=== PATIENT | female | born 1985 | race Caucasian/White ===

== ENCOUNTER 2017-06-06 17:30 | Outpatient (RCR) | payer OTHER, SELFPAY | END 2017-06-06 17:31 | disposition home or self-care (01) | LOC: PT 17:30 | PROVIDERS: Family Provider Pediatrics; Visit Provider Pediatrics | DX: M25.552 Pain in left hip (principal) | CPT/HCPCS: 97010; 97014; 97110; G0283 ==

== ENCOUNTER → 2017-12-21 08:20 | Outpatient (CLI) | payer OTHER, SELFPAY ==
--- NOTE | 2017-12-21 08:25 | US_ITS ---
US breast LT complete INDICATION: Fibrocystic breast disease ORDERING PHYSICIAN: Michelle Jackson PATIENT AGE: 32 years COMPARISON: None TECHNIQUE: Standard FINDINGS: No cystic or solid lesions evident. IMPRESSION: Negative left breast ultrasound BI-RADS Category: 1 Negative Follow-up suggested as clinically warranted. (A letter has been sent to the patient regarding results of the study.)
--- NOTE | 2017-12-21 08:25 | US_ITS ---
US breast RT complete INDICATION: Fibrocystic breast disease ORDERING PHYSICIAN: Michelle Jackson PATIENT AGE: 32 years COMPARISON: None TECHNIQUE: Right breast ultrasound with axilla FINDINGS: 5 mm hypoechoic nodule present at 3:00. The nodule well-circumscribed however, there is poor through transmission of sound. There is shadowing posterior to the nodule. The nodule however is very superficial and a lack of transmission of sound could be due to technique. Ultrasound-guided fine-needle aspiration suggested No other suspicious nodules demonstrated Mildly prominent lymph node is present in the axilla for x 1.6 cm. IMPRESSION: 5 mm hypoechoic nodule 3:00 right breast with poor through transmission of sound. There is shadowing posterior to the nodule. Recommend fine needle aspiration to confirm cystic nature BI-RADS Category: 4 Suspicious Abnormality-Biopsy Considered RECOMMENDED FOLLOW-UP: BIO - BIOPSY RECOMMENDED (A letter has been sent to the patient regarding results of the study.)
== END ==
PROVIDERS: Visit Provider Nurse Practitioner Family
DX: N60.02 Solitary cyst of left breast (principal); N60.01 Solitary cyst of right breast
CPT/HCPCS: 76641

== ENCOUNTER 2019-11-30 17:27 | Emergency (ER) | payer OTHER, SELFPAY ==
[2019-11-30 17:43] VITALS: BP 128/83; PULSE 101; RESP 18; TEMP 36.7; O2SAT 99; BMI 36.6
[2019-11-30 17:51] LABS: UTC Strep Screen (Rapid) Negative (Negative)
--- NOTE | 2019-11-30 17:52 | HMH.EDUTC ---
[facility] [place] Impression: Bronchitis Sinusitis Qualifiers: Sinusitis location: unspecified location Chronicity: unspecified Qualified Code(s): J32.9 - Chronic sinusitis, unspecified Disposition: Home, Self-Care Condition on Discharge: Good Instructions: Sinusitis, Sinus Headache, DI for Sinusitis, DI for Acute Bronchitis, Azithromycin Additional Instructions: ? Start antibiotic today. Be sure to complete entire prescription even if feeling better ? Monitor temp. Tylenol every 4 hours as needed and / or ibuprofen every 6 hours as needed ( As long as your primary care physician has told you that it ok to take both. For fever/aches/pains ER if no less than 101 despite Tylenol or Motrin ? Humidifier/vaporizer or hot steamy shower ? Inhaler every 4-6 hours as needed like we discussed. If unsure how to use it, ask pharmacist to demonstrate how. Should help open airways and improve cough, wheezing, and shortness of breath *Tessalon Perles will not cause drowsiness but use at bedtime to help stop cough so that you may get some rest. *Start steroid today. Helps with inflammation therefore, cough and wheezing. Follow directions on the package. Reviewed side effects. Patient reports taking them before. Follow up IMMEDIATELY for new or worsening of symptoms OR no noticeable improvement over the next 48-72 hours. 911 immediately for any life threatening symptoms such as chest pain or difficulty breathing Prescriptions: Albuterol Sulfate [Proventil-HFA 90mcg/puff Inh] 1 - 2 puffs IH Q4HP PRN #1 inh PRN Reason: Shortness Of Breath Transmission Status: Pending to [facility] # predniSONE [Deltasone 10mg tablet] 10 mg PO BID 5 Days #10 tab Transmission Status: Pending to [facility] # Fluticasone Propionate [Flonase 50mcg nasal spray 16gm] 1 - 2 spr NS DAILY #1 bottle Transmission Status: Pending to [facility] # Azithromycin [Z-Carlos 250mg Tab] 250 mg PO DIRECTED #6 tab Transmission Status: Pending to [facility] # Referrals: Rich Mohr [Primary Care Provider] - As needed Forms: Work/School Release Medical Decision Making - Evgeny Inquiry Pt receiving controlled substance: No Evgeny was queried for this patient: No Vital Signs: 11/30/19 17:43 Temperature 98.1 F Temperature Source Oral Pulse Rate [Radial] 101 H Respiratory Rate 18 Blood Pressure [Right Arm] 128/83 Blood Pressure Mean [Right Arm] 98 Blood Pressure Source [Right Arm] Automatic Cuff Blood Pressure Position [Right Arm] Sitting 02 Sat by Pulse Oximetry 99 Oxygen Delivery Method Room Air - Lab Data Lab results reviewed: Yes: I reviewed the patient's lab results. Lab Results 11/30/19 17:43: Strep Scn Rapid Clinic Negative Orders (Tests/Meds): ORDERS Category Date Time Status Strep Screen Confirmation Stat Micro 10 17:43 [place] [facility] [place] - General Stated complaint: sore throat, cough,weezing Time Seen by Provider: 11/30/19 17:52 Mode of Arrival: Ambulatory Source of Information: Patient Limitations: No Limitations Description of Symptoms (Recalled from Triage Doc. by RN): sore throat, cough, chills, congestion HEENT Symptoms (Recalled from RN notes): Yes Resp Symptoms (Recalled from RN notes): No Skin Symptoms (Recalled from RN notes): No MS Symptoms (Recalled from RN notes): No Functional Status (Recalled from RN notes): wnl - History of Present Illness Provider Complaint: Patient states that she has a history of bronchitis and sinusitis States that she gets tested weekly for COVID at work States that today she was coughing throat sore and irritated and sinus pain and pressure so wanted to come in and get checked and treated before it got too bad - Related Data Previous Rx's Medication Instructions Recorded sertraline 100 mg tablet 100 mg PO DAILY #30 tab 02/04/19 bupropion HCl 150 mg 24 hr tablet, 150 mg PO DAILY #30 tab 03/06/19 extended
[2019-11-30 18:22] VITALS: BP 128/83; PULSE 101; RESP 18; TEMP 36.7; O2SAT 99
== END 2019-11-30 18:23 | disposition home or self-care (01) ==
PROVIDERS: Emergency Provider Nurse Practitioner; PCP Pediatrics
DX: J20.9 Acute bronchitis, unspecified (principal); J32.9 Chronic sinusitis, unspecified; F17.210 Nicotine dependence, cigarettes, uncomplicated; Z88.0 Allergy status to penicillin; Z88.2 Allergy status to sulfonamides; Z88.5 Allergy status to narcotic agent
CPT/HCPCS: 87880; 99201

== ENCOUNTER 2020-05-05 13:04 | Emergency (ER) | payer OTHER, SELFPAY ==
[2020-05-05 13:43] VITALS: BP 118/77; PULSE 83; RESP 14; TEMP 37; O2SAT 98; BMI 38.4
--- NOTE | 2020-05-05 13:56 | XR_ITS ---
PROCEDURE: XR CHEST 2V CLINICAL HISTORY: COUGH, PLEURITIC CHEST PAIN COMPARISON: CR CXR CHEST(2 VIEWS-NOT PORTABLE) from 10/15/2016 CR CXR2V XR chest 2V from 10/11/2017 CR XR CHEST 2V from 05/04/2019 FINDINGS: The cardiomediastinal silhouette and pulmonary vascularity are within normal limits. There are few small noncalcified nodules present in the right upper lobe right midlung and left upper lobe similar to an older exam 10/11/2017 and may be due to granulomas. No lobar consolidation or collapse. No effusions apparent. No acute bony abnormalities. IMPRESSION: No change with no acute finding Dictated by: Hernán Waller MD 05/05/2020 16:49 Hernán Waller MD in [place] 05/05/2020 16:49
--- NOTE | 2020-05-05 13:58 | HMH.EDUTC ---
[facility] [place] Clinical Impression: Pleurisy Acute bronchitis Qualifiers: Bronchitis organism: unspecified organism Qualified Code(s): J20.9 - Acute bronchitis, unspecified Disposition: Home, Self-Care Condition on Discharge: Good Instructions: DI for Acute Bronchitis, DI for Pleurisy Additional Instructions: Drink plenty of fluids. Take tylenol or ibuprofen for pain or fever. Take the medications as directed. Follow up with your regular doctor. GO TO THE ER FOR ANY WORSENING SYMPTOMS Prescriptions: predniSONE [Prednisone 20mg Tab] 20 mg PO BID 5 Days #10 tab Transmission Status: Received by [id number] Benzonatate [Tessalon Perle 100mg Cap] 100 mg PO TIDP PRN #30 cap PRN Reason: Cough Transmission Status: Received by [id number] Azithromycin [Z-Carlos 250mg Tab*] 250 mg PO UD DOSE PK #6 tab Transmission Status: Received by [id number] Referrals: Rich Mohr [Primary Care Provider] - Forms: Work/School Release Time of Disposition: 14:30 Medical Decision Making - Medical Records Medical records reviewed: No: I reviewed the patient's medical records. - Evgeny Inquiry Pt receiving controlled substance: No Vital Signs: 05/05/20 13:43 05/05/20 15:09 Temperature 98.6 F 98 F Temperature Source Oral Pulse Rate 75 Pulse Rate [Right] 83 Respiratory Rate 14 16 Blood Pressure 132/74 Blood Pressure [Right Arm] 118/77 Blood Pressure Mean [Right Arm] 90 Blood Pressure Source [Right Arm] Automatic Cuff Blood Pressure Position [Right Arm] Sitting 02 Sat by Pulse Oximetry 98 - Lab Data Lab results reviewed: Yes: I reviewed the patient's lab results. Lab Results 05/05/20 13:43: Strep Scn Rapid Clinic Negative Orders (Tests/Meds): ORDERS Category Date Time Status Chest XR 2 view (NOT portable) [XR chest 2V] Stat Exams 05/05/20 13:56 Taken Covid-19 Nasal PCR ([facility]) Routine Lab 05/05/20 13:45 Received Strep Screen Confirmation Stat Micro 05/05/20 13:43 Received - Radiology Data #1 Image(s): Chest Image Reviewed: Yes I reviewed the patient's radiology image Preliminary Findings: No Infiltrates Seen [facility] [place] HPI - General Stated complaint: lower left lung pain,cough,headache Time Seen by Provider: 05/05/20 13:58 Mode of Arrival: Ambulatory Source of Information: Patient Limitations: No Limitations Description of Symptoms (Recalled from Triage Doc. by RN): pt states, left posterior lower lobe pain when coughing, and occasion FINLEY, and sore throat. HEENT Symptoms (Recalled from RN notes): Yes (sore throat) Resp Symptoms (Recalled from RN notes): Yes (soreness in chest with coughing) Skin Symptoms (Recalled from RN notes): No MS Symptoms (Recalled from RN notes): No Functional Status (Recalled from RN notes): na - History of Present Illness Provider Complaint: She states that for the past 2 days she has had a cough and pleuritic chest pain. She states that her cough is nonproductive. She denies any fever, but she has had chilling. She has had pneumonia twice in her life and she states that she felt like she does right now both times. - Related Data Previous Rx's Medication Instructions Recorded sertraline 100 mg tablet 100 mg PO DAILY #30 tab 02/04/19 bupropion HCl 150 mg 24 hr tablet, 150 mg PO DAILY #30 tab 03/06/19 extended release hydroxyzine pamoate 25 mg capsule 25 mg PO QHS PRN #30 cap 03/06/19 sertraline 50 mg tablet 50 mg PO DAILY #30 tab 03/06/19 Albuterol Sulfate [Albuterol HFA 1 - 2 puffs IH Q4-6H PRN #1 inh 05/04/19 Inhaler] Azithromycin [Z-Carlos 250mg Tab*] 250 mg PO UD DOSE PK #6 tab 05/04/19 predniSONE [Prednisone 5mg Tab 5 mg PO UD DOSE PK 6 Days #21 pack 05/04/19 Dose-Pack] Albuterol Sulfate [Proventil-HFA 1 - 2 puffs IH Q4HP PRN #1 inh 11/30/19 90mcg/puff Inh] Azithromycin [Z-Carlos 250mg Tab] 250 mg PO DIRECTED #6 tab 11/30/19 Fluticasone Propionate [Flonase 1 - 2 spr NS DAILY #1
[2020-05-05 14:08] LABS: UTC Strep Screen (Rapid) Negative (Negative)
[2020-05-05 15:09] VITALS: BP 132/74; PULSE 75; RESP 16; TEMP 36.6
== END 2020-05-05 14:57 | disposition home or self-care (01) ==
PROVIDERS: Emergency Provider Nurse Practitioner Family; PCP Pediatrics
DX: R09.1 Pleurisy (principal); J20.9 Acute bronchitis, unspecified; Z20.822 Contact with and (suspected) exposure to COVID-19; F17.210 Nicotine dependence, cigarettes, uncomplicated; Z88.0 Allergy status to penicillin; Z88.2 Allergy status to sulfonamides; Z88.5 Allergy status to narcotic agent
CPT/HCPCS: 71046; 87880; 99202; G0463; U0003

== ENCOUNTER → 2020-10-29 16:53 | Outpatient (CLI) | payer OTHER, SELFPAY | PROVIDERS: PCP Pediatrics; Visit Provider Nurse Practitioner | DX: Z20.822 Contact with and (suspected) exposure to COVID-19 (principal) | CPT/HCPCS: C9803; U0003; U0005 ==

== ENCOUNTER → 2021-01-29 16:57 | Outpatient (CLI) | payer OTHER, SELFPAY | PROVIDERS: PCP Pediatrics; Visit Provider Nurse Practitioner Family | DX: Z20.822 Contact with and (suspected) exposure to COVID-19 (principal) | CPT/HCPCS: C9803; U0003; U0005 ==

== ENCOUNTER → 2021-02-26 16:27 | Outpatient (CLI) | payer OTHER, SELFPAY | PROVIDERS: Visit Provider Nurse Practitioner | DX: Z20.822 Contact with and (suspected) exposure to COVID-19 (principal) | CPT/HCPCS: C9803; U0003; U0005 ==

== ENCOUNTER 2021-03-01 09:08 | Emergency (ER) | payer OTHER, SELFPAY ==
[2021-03-01 09:20] VITALS: BP 142/86; PULSE 102; RESP 19; TEMP 37.3; O2SAT 98; BMI 42.0
--- NOTE | 2021-03-01 09:39 | HMH.EDUTC ---
[facility] [place] Impression: Viral upper respiratory illness Disposition: Home, Self-Care Condition on Discharge: Good Instructions: DI for COVID-19 (Suspected or Confirmed ), Preventing the Spread of Coronavirus Discharge Instructions, Ondansetron Additional Instructions: *Monitor Temp, Over the counter Motrin or Tylenol as directed/as needed Tylenol every 4 hours and Motrin every 6 hours (as long as your family doctor has told you that you can take it) for fever or pain. and straight to ER if unable to lower temp less than 101.0 after medication given *Warm salt water gargles may help to soothe the throat *Throat Lozenges *Warm fluids like tea with honey may help to soothe the throat *Sleep elevated *Humidifier/Vaporizer Over the counter Cold medication like Coricdin HBP may help with nasal congestion Follow up IMMEDIATELY for new or worsening symptoms or no Noticeable improvement over the next 48-72 hours. 911 for difficulty breathing or swallowing You were tested for today for COVID19 your test result should be back in the next 24-48 hours, you check your results on the [facility] my health portal if you have trouble logging on you may call for assistance to help you set up an account to see your results You was given a handout with instructions for Self Quarantine and Self isolation for while you wait on test results and what to do if they are positive If you are positive the Health Dept will be contacting you also Make sure to take your Vitamins Vit. C Vit D and Zinc if you can take them Prescriptions: Ondansetron [Zofran 4mg ODT] 4 mg PO TIDP PRN #9 tab PRN Reason: Vomiting Transmission Status: Pending to [id number] Referrals: Rich Marcos MD [Primary Care Provider] - As needed Forms: Work/School Release Medical Decision Making - Evgeny Inquiry Pt receiving controlled substance: No Evgeny was queried for this patient: No Vital Signs: 03/01/21 09:20 Temperature 99.1 F Temperature Source Oral Pulse Rate [Right Brachial] 102 H Respiratory Rate 19 Blood Pressure [Right Arm] 142/86 H Blood Pressure Mean [Right Arm] 104 Blood Pressure Source [Right Arm] Automatic Cuff Blood Pressure Position [Right Arm] Sitting 02 Sat by Pulse Oximetry 98 Oxygen Delivery Method Room Air - Lab Data Lab results reviewed: Yes: I reviewed the patient's lab results. Orders (Tests/Meds): ORDERS Category Date Time Status Covid-19 Nasal PCR ([facility]) Routine Lab 03/01/21 09:34 Ordered Medical Decision Narrative: Patient state that she has take zofran in the past without complications or reactions [facility] [place] - General Stated complaint: covid symptoms Time Seen by Provider: 03/01/21 09:39 Mode of Arrival: Ambulatory Source of Information: Patient Limitations: No Limitations Description of Symptoms (Recalled from Triage Doc. 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
[2021-03-01 09:52] LABS: UTC Influenza A Antigen Negative (Negative); UTC Influenza B Antigen Negative (Negative)
[2021-03-01 09:53] VITALS: BP 142/86; PULSE 102; RESP 19; TEMP 37.3; O2SAT 98
== END 2021-03-01 09:54 | disposition home or self-care (01) ==
PROVIDERS: Emergency Provider Nurse Practitioner; PCP Pediatrics
DX: U07.1 COVID-19 (principal); J06.9 Acute upper respiratory infection, unspecified; F17.210 Nicotine dependence, cigarettes, uncomplicated; Z88.0 Allergy status to penicillin; Z88.2 Allergy status to sulfonamides
CPT/HCPCS: 87804; 99202; C9803; G0463; U0003; U0005

== ENCOUNTER 2021-08-21 19:42 | Emergency (ER) | payer OTHER, SELFPAY ==
[2021-08-21 19:44] VITALS: BP 166/86; PULSE 86; RESP 20; TEMP 36.9; O2SAT 98; BMI 40.2
[2021-08-21 20:00] VITALS: BP 141/90; PULSE 77; O2SAT 99
--- NOTE | 2021-08-21 20:05 | HMH.EDURI ---
ED Disposition Clinical Impression: Viral pharyngitis Disposition: Home, Self-Care Condition on Discharge: Fair Instructions: Viral Pharyngitis Additional Instructions: May take [id number] Tylenol and/or ibuprofen for your pain. Follow-up with your primary care doctor if you are not improving within the next 3 to 4 days. Return to the emergency department if you feel worse in any way. Today you tested negative for influenza, COVID-19, strep. Referrals: Rich Marcos MD [Primary Care Provider] - - Critical Care Critical Care Time: No Attestation: On 08/21/21, the high probability of a clinically significant, sudden or life threatening deterioration of the following system(s) required my full and direct attention, intervention and personal management. The time I documented below is in addition to time spent performing reported procedures but includes the following listed in this critical care notation. Medical Decision Making - Evgeny Inquiry Pt receiving controlled substance: No Vital Signs: 08/21/21 19:44 08/21/21 20:00 Temperature 98.4 F Temperature Source Oral Pulse Rate 77 Pulse Rate [Right] 86 Respiratory Rate 20 Blood Pressure 141/90 H Blood Pressure [Right Arm] 166/86 H Blood Pressure Mean [Right Arm] 112 Blood Pressure Source [Right Arm] Automatic Cuff 02 Sat by Pulse Oximetry 98 99 Oxygen Delivery Method Room Air Room Air - Lab Data Lab results reviewed: Yes: I reviewed the patient's lab results. Lab Results 08/21/21 19:45: Group A Strep Rapid Negative 08/21/21 19:54: SARS-CoV-2 (PCR) Not detected, Influenza A Untype (PCR) Not detected, Influenza Type B (PCR) Not detected Orders (Tests/Meds): ORDERS Category Date Time Status Strep Screen Confirmation Stat Micro 08/21/21 19:45 Received URI/Sore Throat HPI - General Stated Complaint: sore throat Time Seen by Provider: 08/21/21 20:05 Mode of Arrival: Family Vehicle Limitations: No Limitations Description of Symptoms (Recalled from ER Triage Doc. by RN): Pt c/o sore throat and cough for 5 days. States she is taking Tylenol & Ibuprfen without relief. 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 No fever report. Denies n/v/d. - History of Present Illness HPI Narrative: The patient presents to the emergency department complaining of a sore throat. Have been ongoing for about 5 days. She denies a fever. She denies leg pain. She denies myalgias. Complaint: sore throat - Related Data Home Medications Medication Instructions Recorded Confirmed Buprenorphine HCl/Naloxone HCl 1 tab SL DAILY 03/01/21 08/21/21 [Buprenorphine-Nalox 8-2 mg Tab] Metoprolol Succinate [Toprol XL 25 mg PO DAILY 03/01/21 08/21/21 25mg tablet] Sertraline HCl [Zoloft] 25 mg PO DAILY 03/01/21 08/21/21 Escitalopram Oxalate [Lexapro] 20 mg PO DAILY 08/21/21 08/21/21 Lovastatin [Altoprev] 20 mg PO DAILY 08/21/21 08/21/21 Omeprazole [Omeprazole 20mg 20 mg PO DAILY 08/21/21 08/21/21 Capsule] Previous Rx's Medication Instructions Recorded Ondansetron [Zofran 4mg ODT] 4 mg PO TIDP PRN #9 tab 03/01/21 Albuterol Sulfate [Proventil-HFA 1 - 2 puffs IH Q6HP PRN #1 each 03/02/21 90mcg/puff Inh] Allergies Allergy/AdvReac Type Severity Reaction Status Date / Time morphine [MORPHINE] Allergy Severe S-SWELLS-OR Verified 05/05/20 13:48 AL/THROAT amoxicillin [AMOXICILLIN] Allergy Intermediate I-RASH Verified 05/05/20 13:48 penicillin G [PENICILLIN G] Allergy Intermediate I-RASH Verified 05/05/20 13:48 Sulfa (Sulfonamide Allergy Unknown Verified 05/05/20 13:48 Antibiotics) [SULFA (SULFONAMIDE ANTIBIOTICS)] tramadol [TRAMADOL] Allergy Unknown NA-NAUSEA/V Verified 05/05/20 13:48 OMITING H History - Hepatitis A Screen Drug use history?: No Attestation statement:: This patient has been screened for Hepatitis A risk factors. Medical History: Denies::
--- NOTE | 2021-08-21 20:06 | PC.NURSE ---
ER speaking with pt at this time
[2021-08-21 20:44] LABS: Coronavirus 19, PCR Not Detected (NotDetected); Influenza A, PCR Not Detected (NotDetected); Influenza B, PCR Not Detected (NotDetected)
--- NOTE | 2021-08-21 21:00 | PC.NURSE ---
Called lab to check status of strep & rapid covid, states both will be completed ~ 8 min
[2021-08-21 21:01] LABS: Strep Scrn Group A (Rapid) Negative (Negative)
[2021-08-21 21:17] VITALS: BP 141/87; PULSE 88; RESP 20; TEMP 37.1; O2SAT 97
== END 2021-08-21 21:18 | disposition home or self-care (01) ==
PROVIDERS: Emergency Provider Emergency Medicine; PCP Pediatrics
DX: J02.9 Acute pharyngitis, unspecified (principal); Z72.0 Tobacco use; R05.9 Cough, unspecified; Z20.822 Contact with and (suspected) exposure to COVID-19
CPT/HCPCS: 87430; 99282; C9803; U0003; U0005

== ENCOUNTER 2021-11-09 18:24 | Emergency (ER) | payer OTHER, SELFPAY ==
[2021-11-09 19:24] VITALS: BP 0/0; PULSE 0; RESP 0; TEMP -17.7; TEMP 0
== END 2021-11-09 19:25 | disposition left against medical advice (07) ==
LOC: UTC 18:27
PROVIDERS: Emergency Provider Nurse Practitioner
DX: Z53.21 Procedure and treatment not carried out due to patient leaving prior to being seen by health care provider (principal)

== ENCOUNTER 2021-11-14 08:00 | Emergency (ER) | payer OTHER, SELFPAY ==
[2021-11-14 08:10] VITALS: BP 139/89; PULSE 79; RESP 18; TEMP 36.8; O2SAT 99; BMI 35.6
--- NOTE | 2021-11-14 08:11 | XR_ITS ---
PROCEDURE INFORMATION: Exam: XR Right Knee Exam date and time: 11/14/2021 8:10 AM Age: 36 years old Clinical indication: Swelling or effusion of joint; Knee; Additional info: Pain and swelling TECHNIQUE: Imaging protocol: Radiologic exam of the Right knee. Views: 3 views. COMPARISON: No relevant prior studies available. FINDINGS: Bones/joints: Normal. Soft tissues: Normal. IMPRESSION: No acute findings.
--- NOTE | 2021-11-14 08:31 | EXP.UTC ---
Discharge Plan Disposition Patient Disposition: Home, Self-Care Condition: Good Prescriptions Prescriptions: No Action omeprazole 20 MG capsule,delayed release(DR/EC) 20 mg PO DAILY lovastatin 20 MG tablet extended release 24 hr 20 mg PO DAILY escitalopram oxalate 20 MG tablet 20 mg PO DAILY sertraline 25 MG tablet 25 mg PO DAILY metoprolol succinate 25 MG tablet extended release 24 hr 25 mg PO DAILY buprenorphine-naloxone 1 EACH tablet, sublingual 1 tab SL DAILY ondansetron 4 MG tablet,disintegrating 4 mg PO TIDP PRN (Reason: Vomiting) Qty: 9 0RF albuterol sulfate 200 PUFFS HFA aerosol inhaler 1 - 2 puffs IH Q6HP PRN (Reason: Shortness Of Breath) Qty: 1 0RF Referrals Follow up/Referrals: Nestor Alejandro JR, MD [Physician] - See instructions Provider,MD Jeanne [Primary Care Provider] - See instructions Activity Restrictions/Add. Instructions Additional Instructions/Restrictions: *weight bearing as tolerated *RICE, Rest the extremity, Ice 15-20 minutes 3-4 times daily, Compress- wear the francisco wrap as discussed as much as possible to help reduce swelling and pain, Elevate the extremity when at rest *Knee immobilizer is for support and help control swelling, use it except in the shower. Be sure that is not to tight but not to loose either *Elevate when resting? *Ibuprofen 600-800mg every 6-8 hours as needed for pain an inflammation. If need something more can take Tylenol in between doses of Ibuprofen to help Immediately follow up with your family doctor for new or worsening of symptoms, or no noticeable improvement over the next 3-5 days Follow up with Orthopedics if pain continues for further testing and evaluation call for appointment Call back to the [facility] later today for the official reading of your xray Clinical Impressions Clinical Impression: Knee sprain Stand Alone Forms Stand Alone Forms: Work/School Release Instructions Patient Instructions: How To Perform RICE (Rest, Ice, Compress, Elevate) Discharge ED Provider: Tiffanie Mcbride [facility] [place] HPI General Stated complaint: pain in Rt knee Mode of Arrival: Ambulatory Source of Information: Patient Limitations: No Limitations Time Seen by Provider: 11/14/21 08:31 Description of Symptoms (Recalled from Triage Doc. by RN): PATIENT C/O PAIN, SWELLING, TIGHTNESS, AND POPPING TO RIGHT KNEE. NO KNOWN INJURY HEENT Symptoms (Recalled from RN notes): No Resp Symptoms (Recalled from RN notes): No Skin Symptoms (Recalled from RN notes): No MS Symptoms (Recalled from RN notes): Yes Functional Status (Recalled from RN notes): WNL History of Present Illness Provider Complaint: Patient states that for about a month after she hit her knee on a door she has been having pain and swelling in her right knee on and off State that worse if she has been up walking on it at work States that by the end of the day the knee is puffy and swollen States that this morning it was hurting her some so she came in to get it checked out Related Data Home Medications Medication Instructions Recorded Confirmed buprenorphine 8 mg-naloxone 2 mg 1 tab SL DAILY . 03/01/21 08/21/21 sublingual tablet metoprolol succinate 25 mg 25 mg PO DAILY Hypertension 03/01/21 08/21/21 tablet,extended release 24 hr sertraline 25 mg tablet 25 mg PO DAILY Anxiety 03/01/21 08/21/21 escitalopram oxalate 20 mg tablet 20 mg PO DAILY deprssion 08/21/21 08/21/21 lovastatin 20 mg tablet,extended 20 mg PO DAILY hld 08/21/21 08/21/21 release 24 hr omeprazole 20 mg capsule,delayed 20 mg PO DAILY GERD 08/21/21 08/21/21 release Previous Rx's Medication Instructions Recorded ondansetron 4 mg disintegrating 4 mg PO TIDP PRN Vomiting #9 tabs 03/01/21 tablet albuterol sulfate 90 mcg/actuation 1 - 2 puffs IH Q6HP PRN Shortness 03/02/21 aerosol inhaler Of Breath #1 ea Allergies Allergy/AdvReac Type Severity Reaction Status Date / Time morphine [MORPHINE
[2021-11-14 09:23] VITALS: BP 139/89; PULSE 79; RESP 18; TEMP 36.8; O2SAT 99
== END 2021-11-14 09:30 | disposition home or self-care (01) ==
PROVIDERS: Emergency Provider Nurse Practitioner
DX: M25.561 Pain in right knee (principal); S83.91XA Sprain of unspecified site of right knee, initial encounter
CPT/HCPCS: 73562; 99212; G0463

== ENCOUNTER 2022-09-23 15:10 | Emergency (ER) | payer OTHER, SELFPAY ==
[2022-09-23 15:15] VITALS: BP 166/100; PULSE 75; RESP 20; TEMP 37.1; O2SAT 98; BMI 36.2
[2022-09-23 15:25] VITALS: BP 148/76; PULSE 75; RESP 20; TEMP 37.1; O2SAT 98
--- NOTE | 2022-09-23 15:27 | EXP.UTC ---
Discharge Plan Disposition Patient Disposition: Home, Self-Care Condition: Good Prescriptions Prescriptions: New fluticasone propionate [Flonase Allergy Relief] 50 mcg/actuation spray,suspension 1 spray intranasal DAILY Qty: 16 0RF Rx Instructions: administer into each nostril benzonatate 200 mg capsule 200 mg PO TID PRN (Reason: cough) Qty: 30 0RF azithromycin 250 mg tablet See Rx Instructions .ROUTE .COMPLEX Qty: 6 0RF Rx Instructions: For 250 mg dose pack: take 500 mg today (day 1), then 250 mg for 4 days (days 2-5). Phazyme 500 mg capsule 500 mg PO DAILY Qty: 30 0RF No Action omeprazole 20 MG capsule,delayed release(DR/EC) 20 mg PO DAILY lovastatin 20 MG tablet extended release 24 hr 20 mg PO DAILY metoprolol succinate 25 MG tablet extended release 24 hr 25 mg PO DAILY buprenorphine-naloxone 1 EACH tablet, sublingual 1 tab sublingual DAILY albuterol sulfate 200 PUFFS HFA aerosol inhaler 1 - 2 puffs inhalation Q6HP PRN (Reason: Shortness Of Breath) Qty: 1 0RF Referrals Follow up/Referrals: Rich Mohr [Primary Care Provider] - See instructions Activity Restrictions/Add. Instructions Additional Instructions/Restrictions: Do not start antibiotics unless symptoms persist for another week and sinus drainage becomes green. Increase fluids and rest. Follow up next week with primary care provider. Clinical Impressions Clinical Impression: Abdominal gas pain URI (upper respiratory infection) Qualifiers: URI type: unspecified URI Qualified Code(s): J06.9 - Acute upper respiratory infection, unspecified Instructions Patient Instructions: DI for Viral Upper Respiratory Infection -- Adult Discharge ED Provider: Iva Le [facility] General Stated complaint: Cough; sore throat Mode of Arrival: Ambulatory Source of Information: Patient Limitations: No Limitations Time Seen by Provider: 09/23/22 15:22 Description of Symptoms (Recalled from Triage Doc. by RN): PATIENT C/O COUGH AND SINUS PRESSURE SINCE MONDAY HE Symptoms (Recalled from RN notes): Yes Resp Symptoms (Recalled from RN notes): Yes Skin Symptoms (Recalled from RN notes): No MS Symptoms (Recalled from RN notes): No Functional Status (Recalled from RN notes): WNL History of Present Illness Provider Complaint: Pt states that she has had a cough, runny nose and sinus pressure since Monday. She reports that she is coughing up dark colored sputum. She reports a lot of pressure around her nose. She is worried about running into bronchitis as this is an issue she has often. She also reports that she has had a lot of bloating and gas. Related Data Home Medications Medication Instructions Recorded Confirmed buprenorphine 8 mg-naloxone 2 mg 1 tab sublingual DAILY . 03/01/21 11/18/21 sublingual tablet metoprolol succinate 25 mg 25 mg PO DAILY Hypertension 03/01/21 11/18/21 tablet,extended release 24 hr lovastatin 20 mg tablet,extended 20 mg PO DAILY hld 08/21/21 11/18/21 release 24 hr omeprazole 20 mg capsule,delayed 20 mg PO DAILY GERD 08/21/21 11/18/21 release Previous Rx's Medication Instructions Recorded albuterol sulfate 90 mcg/actuation 1 - 2 puffs inhalation Q6HP PRN 03/02/21 aerosol inhaler Shortness Of Breath #1 ea azithromycin 250 mg tablet See Rx Instructions PO .COMPLEX #6 09/23/22 tabs benzonatate 200 mg capsule 200 mg PO TID PRN cough #30 caps 09/23/22 fluticasone propionate 50 1 spray intranasal DAILY #16 grams 09/23/22 mcg/actuation nasal spray,suspension (Flonase Allergy Relief) simethicone 500 mg capsule 500 mg PO DAILY #30 caps 09/23/22 (Phazyme) Allergies Allergy/AdvReac Type Severity Reaction Status Date / Time morphine [MORPHINE] Allergy Severe S-SWELLS-OR Verified 11/18/21 15:40 AL/THROAT amoxicillin [AMOXICILLIN] Allergy Intermediate I-RASH Verified 11/18/21 15:40 penicillin G [PENICILLIN G] Allergy Intermediate
== END 2022-09-23 15:49 | disposition home or self-care (01) ==
PROVIDERS: Emergency Provider Nurse Practitioner Family; PCP Pediatrics
DX: J06.9 Acute upper respiratory infection, unspecified (principal); R14.1 Gas pain; I10 Essential (primary) hypertension; F17.210 Nicotine dependence, cigarettes, uncomplicated; E78.5 Hyperlipidemia, unspecified; F41.9 Anxiety disorder, unspecified; F32.A Depression, unspecified
CPT/HCPCS: 99212; 99214; G0463

== ENCOUNTER → 2022-09-28 08:12 | Outpatient (CLI) | payer OTHER, SELFPAY ==
[2022-09-28 08:31] LABS: Basophils % 0.3 % (0.1-2.0); Eosinophils # 0.3 K/mm3 (0.0-0.4); Eosinophils % 2.4 % (0.1-12.0); Hematocrit 41.9 % (37.0-47.0); Hemoglobin 14.2 g/dL (12.2-16.2); Lymphocytes # 2.4 K/mm3 (0.7-4.5); Lymphocytes % 20.1 % (10-50); Mean Corpuscular HGB Conc 33.8 g/dL (31.8-35.4); Mean Corpuscular Hemoglobin 29.9 pg (27.0-31.2); Mean Corpuscular Volume 88.7 fl (81-99); Mean Platelet Volume 8.4 fl (7.4-10.4); Monocytes # 0.9 K/mm3 (0.1-1.0); Monocytes % 7.8 % (1.7-9.3); Neutrophils # 8.1 K/mm3 (1.8-7.8); Neutrophils % 69.5 % (37.0-80.0); Platelet Count 287 K/mm3 (142-424); Red Blood Count 4.73 M/mm3 (4.20-5.40); Red Cell Distribution Width 13.9 % (11.5-17.5); White Blood Count 11.7 K/mm3 (4.8-10.8)
[2022-09-28 08:47] LABS: Hemoglobin A1C 5.4 % (4.0-6.0)
[2022-09-28 09:22] LABS: Chloride 103 mmol/L (98-107); Potassium 3.6 mmoL/L (3.5-5.1); Sodium 140 mmol/L (136-145)
[2022-09-28 09:25] LABS: Alanine Aminotransferase 22 U/L (12-78); Albumin Level 3.8 g/dl (3.5-5.0); Albumin/Globulin Ratio 1.4 (1.1-1.8); Alkaline Phosphatase 121 U/L (38-126); Anion Gap 12.6 mEq/L (5-15); Aspartate Amino Transferase 24 U/L (14-36); Bilirubin,Total 0.3 mg/dl (0.2-1.3); Blood Urea Nitrogen 9 mg/dl (7-17); Carbon Dioxide 28 mmol/L (22.0-30.0); Cholesterol 153 mg/dl (140-200); Estimated Glomerular Filt Rate 113 ml/min (>60); GFR (African American) 137 ML/MIN (>60); Globulin 2.7 g/dL (1.3-3.2); Total Protein,Serum 6.5 g/dl (6.3-8.2); Triglycerides 259 mg/dl (30-150); VLDL Cholesterol 52 mg/dL (0-40)
[2022-09-28 09:26] LABS: Calcium 9.6 mg/dl (8.4-10.2); Chol/HDL Ratio 7.3 (1-3.5); Glucose 95 mg/dl (74-100); HDL Cholesterol 21 mg/dl (40-60)
[2022-09-28 09:37] LABS: Direct LDL Cholesterol 91.18 mg/dL (100-129)
[2022-09-28 09:41] LABS: 25-OH Vitamin D, Total 20.5 ng/mL (30-100); Free T4 (Free Thyroxine) 1.05 ng/dl (0.78-2.19)
[2022-09-28 09:55] LABS: Thyroid Stimulating Hormone 1.98 uIU/mL (0.465-4.68)
== END ==
PROVIDERS: PCP Internal Medicine; Visit Provider Internal Medicine
DX: Z00.00 Encounter for general adult medical examination without abnormal findings (principal); I10 Essential (primary) hypertension; E78.5 Hyperlipidemia, unspecified; E55.9 Vitamin D deficiency, unspecified; Z79.899 Other long term (current) drug therapy
CPT/HCPCS: 36415; 80053; 80061; 82306; 83036; 84439; 84443; 85025

== ENCOUNTER → 2022-10-28 11:45 | Outpatient (CLI) | payer OTHER, SELFPAY ==
--- NOTE | 2022-10-28 11:49 | XR_ITS ---
FINAL REPORT CLINICAL HISTORY: right ankle pain COMPARISON: None FINDINGS: RIGHT ANKLE: Three views of the right ankle were obtained. There is no acute fracture or dislocation. Calcaneal spurs are noted. The joint spaces and mortise are intact. There is no soft tissue abnormality. IMPRESSION: No acute bony abnormality. Reviewed, Interpreted and Dictated by Baljinder Basurto III, MD Transcribed by Stephanie Zhang Authenticated and [facility]
--- NOTE | 2022-10-28 11:49 | XR_ITS ---
FINAL REPORT CLINICAL HISTORY: Right knee pain COMPARISON: None FINDINGS: Three views of the right knee reveal no evidence of fracture or dislocation. The bony alignment is normal. There is mild degenerative change. There is no evidence of joint effusion. No localized soft tissue abnormality is identified. IMPRESSION: Mild degenerative change without acute abnormality identified. Reviewed, Interpreted and Dictated by Baljinder Basurto III, MD Transcribed by Stephanie Zhang Authenticated and [facility]
== END ==
PROVIDERS: PCP Internal Medicine; Visit Provider Orthopaedic Surgery
DX: M25.561 Pain in right knee (principal); M25.571 Pain in right ankle and joints of right foot
CPT/HCPCS: 73562; 73610

== ENCOUNTER 2023-02-24 14:21 | Outpatient (CLI) | payer OTHER, SELFPAY ==
--- NOTE | 2023-02-24 14:22 | US_ITS ---
PROCEDURE INFORMATION: Exam: US Right Breast, Complete Exam date and time: 02/24/2023 2:58 PM Age: 37 years old Clinical indication: Palpable abnormality in the right breast TECHNIQUE: Imaging protocol: Complete ultrasound of all four quadrants of the right breast and the retroareolar regions, including ultrasound of the axilla when performed. COMPARISON: BREASTRT US breast RT complete 12/21/2017 8:26 AM FINDINGS: Breast: Sonographic images of the right breast including the retroareolar region, all 4 quadrants and the axilla demonstrates a subcutaneous predominantly echogenic ovoid mass measuring 1.2 x 0.6 x 1.1 cm in dimension. It appears more echogenic compared to prior study dated 12/21/2017. The finding, in all likelihood, reflects benign fat necrosis. This appears to correlate with the patient's complaint of a palpable abnormality.. No architectural distortion or acoustical shadowing. No skin thickening or axillary adenopathy. IMPRESSION: A skin marker should be placed over the area of palpable concern followed by a diagnostic unilateral mammogram with spot compression views for full evaluation of the patient's complaint of a palpable abnormality. ASSESSMENT: BI-RADS Category 0: Incomplete- Need Additional Imaging Evaluation and/or Prior Mammograms for Comparison
== END 2023-02-24 23:59 ==
LOC: RAD 14:22
PROVIDERS: PCP Nurse Practitioner Family; Visit Provider Nurse Practitioner Family
DX: N63.10 Unspecified lump in the right breast, unspecified quadrant (principal)
CPT/HCPCS: 76641

== ENCOUNTER 2023-03-14 14:26 | Outpatient (CLI) | payer OTHER, SELFPAY ==
--- NOTE | 2023-03-14 14:26 | MM_ITS ---
PROCEDURE INFORMATION: Exam: MG Right Diagnostic Breast Tomosynthesis Exam date and time: 03/14/2023 2:19 PM Age: 37 years old Clinical indication: Recall the basis of sonography 02/24/2023 for mammographic evaluation of palpable concern felt to correspond to fat necrosis on sonography 02/24/2023. TECHNIQUE: Imaging protocol: Right Diagnostic tomosynthesis and 2D mammography including computer-aided detection (CAD) when performed. Unilateral or bilateral exam. Triangular skin marker placed at palpable concern. COMPARISON: 1. US BREAST RT COMPLETE 02/24/2023 2:58 PM 2. BREASTRT US breast RT complete 12/21/2017 8:26 AM FINDINGS: RIGHT MAMMOGRAPHY: Breast composition: There are scattered areas of fibroglandular density. Mass: None. Architectural distortion: None. Calcifications: At palpable concern at 3 o'clock anterior to middle 3rd, two groupings of coarse calcifications with no focal mass or asymmetry. No suspicious calcifications. Asymmetric density: None. Skin thickening: None. Axillary adenopathy: None. IMPRESSION: At palpable concern at 3 o'clock anterior to middle 3rd, two groupings of coarse calcifications with no focal mass or asymmetry - calcifications are probably benign and likely related to fat necrosis as well. Suggest 6-12 week follow-up sonography and 6 month follow-up right diagnostic mammography, unless otherwise clinically indicated. Further evaluation of a palpable abnormality should be based on clinical grounds regardless of radiographic findings or lack thereof. ASSESSMENT: BI-RADS Category 3: Probably benign
== END 2023-03-14 23:59 ==
LOC: RAD 14:26
PROVIDERS: PCP Internal Medicine; Visit Provider Nurse Practitioner Family
DX: N63.41 Unspecified lump in right breast, subareolar (principal)
CPT/HCPCS: 77061; 77065; G0279

== ENCOUNTER 2023-04-24 15:39 | Outpatient (CLI) | payer OTHER, SELFPAY ==
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
== END 2023-04-24 23:59 ==
LOC: RAD 15:40
PROVIDERS: PCP Internal Medicine; Visit Provider Nurse Practitioner Family
DX: M54.50 Low back pain, unspecified (principal)
CPT/HCPCS: 72100

== ENCOUNTER 2023-05-02 12:33 | Outpatient (RCR) | payer OTHER, SELFPAY | END 2023-05-02 14:00 | disposition home or self-care (01) | LOC: PT 12:33 | PROVIDERS: Visit Provider Nurse Practitioner Family | DX: M54.50 Low back pain, unspecified (principal) | CPT/HCPCS: 97760 ==

== ENCOUNTER 2023-05-23 15:48 | Outpatient (CLI) | payer OTHER, SELFPAY ==
--- NOTE | 2023-05-23 15:49 | US_ITS ---
PROCEDURE INFORMATION: Exam: US Right Breast, Complete Exam date and time: 05/23/2023 5:00 PM Age: 38 years old Clinical indication: Short term radiographic follow-up of the right breast TECHNIQUE: Imaging protocol: Complete ultrasound of all four quadrants of the right breast and the retroareolar regions, including ultrasound of the axilla when performed. COMPARISON: US BREAST RT COMPLETE 02/24/2023 2:58 PM FINDINGS: ULTRASOUND: Breast ultrasound findings: Sonographic images of the right 3 o'clock axis 4 cm from the nipple demonstrates improvement in the appearance of echogenic subcutaneous fat most consistent with resolving fat necrosis. No other abnormalities in the remainder of the right breast. No axillary adenopathy. IMPRESSION: No sonographic evidence of malignancy. Resolving fat necrosis in the right medial breast. A diagnostic right mammogram is recommended in August 2023 ASSESSMENT: BI-RADS Category 2: Benign.
== END 2023-05-23 23:59 | disposition home or self-care (01) ==
LOC: RAD 15:49
PROVIDERS: PCP Internal Medicine; Visit Provider Internal Medicine
DX: N63.10 Unspecified lump in the right breast, unspecified quadrant (principal)
CPT/HCPCS: 76641

== ENCOUNTER 2023-05-30 17:01 | Outpatient (CLI) | payer OTHER, SELFPAY ==
--- NOTE | 2023-05-30 17:03 | MR_ITS ---
FINAL REPORT CLINICAL HISTORY: LBP COMPARISON: None FINDINGS: Multiplanar MR imaging of the lumbar spine was performed without contrast. On the sagittal T2-weighted images, there is abnormal decreased signal throughout the lumbar discs with relative sparing of L5-S1. The vertebrae are of normal height. The vertebral alignment is normal. L1-2: There is no significant canal stenosis or neural foraminal narrowing. L2-3: Mild diffuse disc bulge. Mild bilateral neural foraminal narrowing. L3-4: There is no significant canal stenosis or neural foraminal narrowing. L4-5: Moderate diffuse disc bulge. Bilateral facet hypertrophy. Moderate right and mild left neural foraminal narrowing. L5-S1: There is no significant canal stenosis or neural foraminal narrowing. IMPRESSION: Diffuse disc bulge at L4-5 with moderate right hydronephrosis. Reviewed, Interpreted and Dictated by Tyshawn Ahumada MD Transcribed by Stephanie Zhang Authenticated and . [facility]
== END 2023-05-30 23:59 | disposition home or self-care (01) ==
LOC: RAD 17:03
PROVIDERS: PCP Nurse Practitioner Family; Visit Provider Nurse Practitioner Family
DX: M54.59 Other low back pain (principal)
CPT/HCPCS: 72148; 76376

== ENCOUNTER 2023-06-06 14:58 | Outpatient (CLI) | payer OTHER, SELFPAY ==
--- NOTE | 2023-06-06 14:58 | US_ITS ---
FINAL REPORT CLINICAL HISTORY: N13.30 - Unspecified hydronephrosis COMPARISON: None FINDINGS: RENAL ULTRASOUND: The right kidney measures 11.3 cm in size. No evidence of hydronephrosis or focal mass is seen. There does appear to be fatty infiltration of the liver. The left kidney measures 10.5 cm in length. No evidence of hydronephrosis or focal mass is seen. The spleen is unremarkable in appearance. IMPRESSION: Mild fatty infiltration of the liver. No evidence of hydronephrosis or renal mass. Reviewed, Interpreted and Dictated by Tyshawn Ahumada MD Transcribed by Myra Bush Authenticated and [facility]
== END 2023-06-06 23:59 | disposition home or self-care (01) ==
LOC: RAD 14:58
PROVIDERS: PCP Nurse Practitioner Family; Visit Provider Nurse Practitioner Family
DX: N13.30 Unspecified hydronephrosis (principal)
CPT/HCPCS: 76770

== ENCOUNTER 2023-07-27 14:48 | Outpatient (CLI) | payer OTHER, SELFPAY ==
--- NOTE | 2023-07-27 14:48 | US_ITS ---
PROCEDURE: US TRANSVAGINAL CLINICAL INDICATION: right pelvic pain COMPARISON: No exams were available for comparison FINDINGS: Transvaginal sonographic images of the pelvis were obtained. UTERUS: 9.1cm x 6.1cmx 5.3cm anteverted with a combined endometrial thickness of 16.4mm. There are multiple small nabothian cysts in the cervix. scars are seen. The endometrium appears heterogenous and thickened. There appears to be 1.1 cm x 0.6 cm x 0.6 cm polyp within the endometrium. There is a small posterior fibroid measuring 0.9 cm x 1.1 cm x 1.4 cm. LEFT OVARY: 3.3cmx2.6 cmx2.3cm with a volume of 10.2ml. Left ovary is difficult to visualize. There is a follicle that measures 2.0 cm x 1.4 cm x 2.0 cm. There are multiple small peripheral follicles. RIGHT OVARY: 2.7 cmx 2.5cmx2.0cm with a volume of 6.8ml. There is a hyperechoic area within the right ovary that measures 1.3 cm x 1.0 cm x 1.3 cm. Likely benign old corpus luteum. Both ovaries are seen and appear normal. Doppler flow to both ovaries are seen. There is no fluid in the cul-de-sac. IMPRESSION: 1. Anteverted uterus slightly bulky in size and normal in shape. 2. The endometrium is thickened, heterogenous and measuring 16.4 mm. There appears to be a 1.1 cm polyp within the endometrium. 3. There is a posterior fibroid measuring 1.4 cm. 4. Both ovaries are seen and are somewhat difficult to visualize. There is a 2 cm follicle in the left ovary. The right ovary has a 1.3 cm hyperechoic area, likely a resolving corpus luteum. 5. No fluid in the cul-de-sac. 6. Suggest a gynecology consult. Dictated by: Ryley Hadley MD 07/28/2023 09:05 Ryley Hadley MD in OV 07/28/2023 09:05
== END 2023-07-27 23:59 | disposition home or self-care (01) ==
LOC: RAD 14:48
PROVIDERS: PCP Nurse Practitioner Family; Visit Provider Nurse Practitioner Family
DX: R10.2 Pelvic and perineal pain (principal)
CPT/HCPCS: 76830

== ENCOUNTER 2023-11-21 16:56 | Outpatient (CLI) | payer OTHER, SELFPAY ==
[2023-11-21 16:46] LABS: Microscopic, Urine URINE MICROSCOPIC (MICROSCOPIC)
[2023-11-21 16:59] LABS: Appearance,Urine CLEAR (Clear); Bilirubin,Urine Negative (Negative); Blood, Urine Negative (Negative); Color,Urine YELLOW (Yellow); Glucose,Urine (UA) Negative (Negative); Ketones,Urine Negative (Negative); Leukocyte Esterase,Urine Negative (Negative); Nitrate,Urine Negative (Negative); Protein,Urine Negative (Negative); Specific Gravity, Urine 1.025 (1.005-1.030); Urobilinogen,Urine 0.2 EU/dl (0.2)
[2023-11-21 17:47] LABS: RBC,Urine Occasional #/hpf (0-3)
[2023-11-21 17:48] LABS: Bacteria,Urine 3+ /lpf
== END 2023-11-21 23:59 | disposition home or self-care (01) ==
LOC: LAB.DROPOF 16:56
PROVIDERS: PCP Nurse Practitioner Family; Visit Provider Nurse Practitioner Family
DX: R35.0 Frequency of micturition (principal); R30.0 Dysuria; N39.0 Urinary tract infection, site not specified; B96.29 Other Escherichia coli [E. coli] as the cause of diseases classified elsewhere
CPT/HCPCS: 81001; 87086; 87088; 87186

== ENCOUNTER 2023-12-09 09:54 | Outpatient (CLI) | payer OTHER, SELFPAY ==
[2023-12-09 10:11] LABS: Microscopic, Urine URINE MICROSCOPIC (MICROSCOPIC)
[2023-12-09 10:49] LABS: Appearance,Urine CLEAR (Clear); Bilirubin,Urine Negative (Negative); Blood, Urine Negative (Negative); Color,Urine YELLOW (Yellow); Glucose,Urine (UA) Negative (Negative); Ketones,Urine Negative (Negative); Leukocyte Esterase,Urine 1+ (Negative); Nitrate,Urine Negative (Negative); PH,Urine 6.5 (5.0-8.5); Protein,Urine Negative (Negative); Urobilinogen,Urine 0.2 EU/dl (0.2)
[2023-12-09 10:54] LABS: Basophils % 0.5 % (0.1-2.0); Eosinophils # 0.2 K/mm3 (0.0-0.4); Hematocrit 41.3 % (37.0-47.0); Hemoglobin 14.7 g/dL (12.2-16.2); Lymphocytes # 2.3 K/mm3 (0.7-4.5); Lymphocytes % 26.5 % (10-50); Mean Corpuscular HGB Conc 35.6 g/dL (31.8-35.4); Mean Corpuscular Hemoglobin 30.6 pg (27.0-31.2); Mean Corpuscular Volume 85.9 fl (81-99); Mean Platelet Volume 10.2 fl (7.4-10.4); Monocytes # 0.7 K/mm3 (0.1-1.0); Monocytes % 8.3 % (1.7-9.3); Neutrophils # 5.5 K/mm3 (1.8-7.8); Neutrophils % 62.7 % (37.0-80.0); Platelet Count 254 K/mm3 (142-424); Red Blood Count 4.82 M/mm3 (4.20-5.40); Red Cell Distribution Width 14.3 % (11.5-17.5); White Blood Count 8.8 K/mm3 (4.8-10.8)
[2023-12-09 11:09] LABS: Hemoglobin A1C 5.4 % (4.0-6.0)
[2023-12-09 11:11] LABS: Estimated Glomerular Filt Rate 94 ml/min (>60); GFR (African American) 114 ML/MIN (>60)
[2023-12-09 11:14] LABS: Albumin Level 4.2 g/dl (3.5-5.0); Chloride 106 mmol/L (98-107)
[2023-12-09 11:15] LABS: Bacteria,Urine 1+ /lpf; Potassium 3.6 mmoL/L (3.5-5.1); Sodium 138 mmol/L (136-145)
[2023-12-09 11:17] LABS: Alanine Aminotransferase 19 U/L (12-78); Albumin/Globulin Ratio 1.6 (1.1-1.8); Alkaline Phosphatase 84 U/L (38-126); Anion Gap 7.6 mEq/L (5-15); Aspartate Amino Transferase 22 U/L (14-36); Bilirubin,Total 0.5 mg/dl (0.2-1.3); Blood Urea Nitrogen 8 mg/dl (7-17); Carbon Dioxide 28 mmol/L (22.0-30.0); Globulin 2.6 g/dL (1.3-3.2); Iron 99 ug/dL (37-170); Total Protein,Serum 6.8 g/dl (6.3-8.2)
[2023-12-09 11:18] LABS: Calcium 9.1 mg/dl (8.4-10.2); Chol/HDL Ratio 4.9 (1-3.5); Cholesterol 166 mg/dl (140-200); Glucose 114 mg/dl (74-100); HDL Cholesterol 34 mg/dl (40-60); Triglycerides 262 mg/dl (30-150); VLDL Cholesterol 52 mg/dL (0-40)
[2023-12-09 11:23] LABS: Direct LDL Cholesterol 100.45 mg/dL (100-129)
[2023-12-09 11:29] LABS: Free T4 (Free Thyroxine) 1.38 ng/dl (0.78-2.19)
[2023-12-09 11:49] LABS: Thyroid Stimulating Hormone 1.12 uIU/mL (0.465-4.68)
[2023-12-09 11:53] LABS: Ferritin 29.4 ng/ml (6.24-137)
[2023-12-09 11:55] LABS: Total Iron Binding Capacity 399 ug/dL (265-497)
[2023-12-09 12:02] LABS: Vitamin B12 522 pg/mL (239-931)
[2023-12-11 14:17] LABS: HIV (1&2) Antibody Rapid NONREACTIVE (NONREACTIVE)
[2023-12-12 10:14] LABS: HCV Ab Non Reactive (Non Reactive)
== END 2023-12-09 23:59 | disposition home or self-care (01) ==
PROVIDERS: PCP Nurse Practitioner Family; Visit Provider Nurse Practitioner Family
DX: R53.83 Other fatigue (principal); I10 Essential (primary) hypertension; Z13.1 Encounter for screening for diabetes mellitus; N13.30 Unspecified hydronephrosis; E53.8 Deficiency of other specified B group vitamins; E55.9 Vitamin D deficiency, unspecified; Z68.38 Body mass index [BMI] 38.0-38.9, adult; E78.2 Mixed hyperlipidemia; Z11.59 Encounter for screening for other viral diseases; Z11.4 Encounter for screening for human immunodeficiency virus [HIV]; Z72.0 Tobacco use
CPT/HCPCS: 36415; 80050; 80053; 80061; 81001; 82306; 82607; 82728; 83036; 83540; 83550; 84156; 84439; 84443; 85025; 86803; 87086; 87088; 87186; 87389

== ENCOUNTER 2023-12-21 16:10 | Outpatient (CLI) | payer OTHER, SELFPAY ==
[2023-12-21 16:35] LABS: Microscopic, Urine URINE MICROSCOPIC (MICROSCOPIC)
[2023-12-21 17:43] LABS: Appearance,Urine CLEAR (Clear); Bilirubin,Urine Negative (Negative); Blood, Urine Negative (Negative); Color,Urine YELLOW (Yellow); Glucose,Urine (UA) Negative (Negative); Ketones,Urine Negative (Negative); Leukocyte Esterase,Urine Negative (Negative); Nitrate,Urine Negative (Negative); Protein,Urine Negative (Negative); Urobilinogen,Urine 0.2 EU/dl (0.2)
[2023-12-21 19:40] LABS: Bacteria,Urine 4+ /lpf; RBC,Urine Occasional #/hpf (0-3)
== END 2023-12-21 23:59 | disposition home or self-care (01) ==
LOC: LAB.DROPOF 12-22 08:18
PROVIDERS: PCP Nurse Practitioner Family; Visit Provider Nurse Practitioner Family
DX: N39.0 Urinary tract infection, site not specified (principal)
CPT/HCPCS: 81001; 87086; 87088; 87186

== ENCOUNTER 2024-01-13 10:08 | Outpatient (CLI) | payer OTHER, SELFPAY ==
[2024-01-13 10:14] LABS: Coronavirus 19, PCR Not Detected (NotDetected); Influenza A, PCR Not Detected (NotDetected); Influenza B, PCR Not Detected (NotDetected)
== END 2024-01-13 23:59 | disposition home or self-care (01) ==
LOC: LAB 10:10
PROVIDERS: PCP Nurse Practitioner Family; Visit Provider Family Medicine
DX: R05.9 Cough, unspecified (principal)
CPT/HCPCS: 87636

== ENCOUNTER 2024-03-20 15:52 | Outpatient (CLI) | payer OTHER, SELFPAY | END 2024-03-20 23:59 | disposition home or self-care (01) | LOC: RT 15:54 | PROVIDERS: PCP Internal Medicine; Visit Provider Nurse Practitioner | DX: R00.2 Palpitations (principal) | CPT/HCPCS: 93270 ==

== ENCOUNTER 2024-03-26 14:46 | Outpatient (CLI) | payer OTHER, SELFPAY ==
--- NOTE | 2024-03-26 14:50 | CA_ITS ---
APPROVED REPORT EXAM: Comprehensive 2D, Doppler, and color-flow Echocardiogram Estate Conservator: Tootie Momin RVT Ht: 5 ft 2 in Wt: 210lbs BSA: 1.95 BP: 148/90 mmHg Indications: PALPITATIONS,MILLAN,SMOKER,FATIGUE 2D Dimensions LA Volume 43.60 mL LA Volume Index 22.36 mL/m2 (M/F) 16-34 M-Mode Dimensions RVDd 2.78 cm (0.9-2.6) LA Diam 3.55 cm (1.9-4.0) LVDd 4.41 cm (3.5-5.7) LVDs 2.74 cm (3.5-5.7) IVSd 1.27 cm (0.6-1.1) PWd 0.72 cm (0.6-1.1) EF (Teich) 68.30% FS 37.90% EDV (Teich) 88.20 mL TAPSE 2.96 (<1.7) ESV (Teich) 28.00 mL LV Diastology E Decel Time 307 (160-240 msec) E/A Ratio 1.0 Aortic Valve JAKOB Index 1.31 cm2/m2 AoV Peak Jacob. 169.0 (50-130 cm/s) AO Peak GR. 11.40 mmHg AO Mean GR. 6.20 (<5 mmHg) AO VTI 32.5 (18-25 cm) JAKOB (VTI) 2.62 (2.5-4.5 cm2) Mitral Valve MV E Max Jacob. 95.0 (40-130 cm/s) MV A Velocity 91.0 (40-130 cm/s) E/A Ratio 1.04 MV PHT 90.0 ms Pulmonary Valve PV Peak Velocity 107.0 (50-150 cm/s) Left Ventricle The left ventricle is normal size. The left ventricular systolic function is normal. The left ventricular ejection fraction is within the normal range. There is normal left ventricular wall thickness. There is normal LV segmental wall motion. The left ventricular diastolic function is normal. LVEF is 55%. Right Ventricle The right ventricle is normal size. The right ventricular systolic function is normal. Atria The left atrium size is normal. The right atrium size is normal. There is no Doppler evidence of interatrial shunt. Aortic Valve The aortic valve opens well. There is no aortic valvular stenosis. No aortic regurgitation is present. Mitral Valve The mitral valve is normal in structure. No evidence of mitral valve stenosis. Trace mitral valve regurgitation noted. Tricuspid Valve Tricuspid valve is grossly normal in structure and function. Trace tricuspid regurgitation. There is insufficient TR jet to estimate RVSP. Pulmonic Valve The pulmonary valve is normal in structure. Trace pulmonic regurgitation. Great Vessels The aortic root is normal in size. IVC is normal in size and collapses >50% with inspiration. Pericardium There is no pericardial effusion. Other Information Study Quality: Fair Conclusion Normal biventricular systolic function. No significant valvular stenosis or regurgitation. Electronically signed by : Daphney Castillo MD 04/01/2024 00:02:38
== END 2024-03-26 23:59 | disposition home or self-care (01) ==
LOC: RT 14:47
PROVIDERS: PCP Internal Medicine; Visit Provider Nurse Practitioner
DX: R00.2 Palpitations (principal); R53.83 Other fatigue; Z82.49 Family history of ischemic heart disease and other diseases of the circulatory system; R06.83 Snoring
CPT/HCPCS: 93306

== ENCOUNTER 2024-05-09 10:31 | Outpatient (CLI) | payer OTHER, SELFPAY ==
--- NOTE | 2024-05-09 | CA_ITS ---
APPROVED REPORT Exam: Exercise Treadmill Technologist: Chiqui Landaverde Ht: 5 ft 2 in Wt: 203 lbs BSA: 1.92 m2 Stress Test Details Test: Exercise stress testing was performed using a [place] protocol. HR Resting HR: 63 bpm Max Heart Rate (APMHR): 182 bpm Max HR Achieved: 159 bpm Target HR (85% APMHR): 155 bpm % of APMHR: 87 Recovery HR: 97 bpm HR response to stress: Normal HR response to stress BP Resting BP: 167.0/99.0 mmHg Max BP: 208.0/104.0 mmHg Recovery BP: 181.0/94.0 mmHg BP response to stress: Abnormal hypertensive response to stress. ECG Resting ECG: NSR Stress ECG: <0.[address] depression Clinical Highest Stage Achieved: III Stress ECG Conclusion 8 Minutes. 10.0 METS Max HR: 159 % of PM: 87 Max BP: 208/104 METs: 10.0 Test stopped due to: SOA, leg fatigue. Symptoms: No CP. Arrhythmias/Ectopy: None. ST-T Changes: <0.[address] depression Conclusion: Average exercise capacity. No ECG changes suggestive of ischemia at peak stress. Hypertensive BP response to exercise, further BP control is recommended. Electronically signed by : Daphney Castillo MD 05/12/2024 21:51:07
== END 2024-05-09 23:59 | disposition home or self-care (01) ==
LOC: RT 10:31
PROVIDERS: PCP Internal Medicine; Visit Provider Nurse Practitioner
DX: I20.9 Angina pectoris, unspecified (principal); R00.2 Palpitations; Z82.49 Family history of ischemic heart disease and other diseases of the circulatory system; R53.83 Other fatigue
CPT/HCPCS: 93017; 93018

== ENCOUNTER 2024-05-19 21:23 | Emergency (ER) | payer OTHER, SELFPAY ==
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
[2024-05-19 21:43] VITALS: BP 167/87; PULSE 68; RESP 20; TEMP 36.8; O2SAT 100; BMI 36.6
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
--- NOTE | 2024-05-19 21:53 | PC.NURSE ---
Pt states pain 2 on 1-10 scale
[2024-05-19 22:52] VITALS: BP 140/70; PULSE 76; RESP 20; TEMP 36.8; O2SAT 98
--- OUTSIDE RECORDS SUMMARY | 2024-05-23 20:04 | XMS_ITS | Data Portability ---
Author Organization [facility] ADMIN Address [address] [place] [address] Assessment Encounter Date Assessment Date Assessment LastModified by Organization Details LastModified Time 03/29/2022 03/29/2022 Awaiting results of Echo. dickerson Not available 03/29/2022 15:50:53 Plan of Treatment Reminders Order Date Submit Date Provider Last Modified By Organization Details Last Modified Time Details Appointments None recorded. Lab influenza virus A + B + SARS-CoV-2 (COVID19) Ag panel, rapid IA, upper respirator y specimen 2021 022 [email or web address] [facility], [address] [place] [address], [address], [place], [address], 2 10:35:41 Referral None recorded. Procedures None recorded. Surgeries None recorded. Imaging XR, ribs, unilateral , w/ PA chest 2022 023 radha 1 [facility] (Registration ), [address], [place], [address], 3 10:39:05 Medication Orders vareniclin e tartrate 0.5 mg (11)-1 mg (42) tablets in a dose pack 2022 023 [id number], [address], [id number], 3 15:50:41 vareniclin e tartrate 1 mg tablet 2022 023 Z[facility] #93305, [address] [facility] [address], [place], [id number], 3 15:50:42 cyclobenza stef 10 mg tablet 2022 023 MAYAGUEZ [facility] #, [address] [facility] [address], [place], [id number], 3 16:17:40 Anoro Ellipta 62.5 mcg-25 mcg/actuat ion powder for inhalation 2021 MAYAGUEZ [facility] #66053, [address] [facility] [address], [place], [id number], 2 10:37:50 albuterol sulfate HFA 90 mcg/actuat ion aerosol inhaler 2021 MAYAGUEZ [facility] #, [address] [facility] [address], [place], [id number], 2 10:35:47 azithromyc in 250 mg tablet 2021 [facility], [address] [facility] [address], [place], [id number], 3 15:33:58 prednisone 20 mg tablet 2021 oudlette [facility], [address] [facility] [address], [place], [id number], 3 15:34:24 benzonatat e 200 mg capsule 2021 [facility], [address] [facility] [address], [place], [id number], 2 10:39:03 Patient TargetsNo targets recorded. Patient InstructionsNo instructions recorded. Reason for Referral None Reported. Results Created Date Observation Date Name Description Value Unit Range Abnormal Flag Note LastModifiedBy Organization Detail LastModifiedTime 02/01/20 22 01/31/2022 influ stanley virus A + B + SARS- CoV-2 (COVI D19) Ag panel , rapid IA, upper respi rator y speci men FLU A negati ve Not Available [facility] [address] , [place], [address], 01/31/2022 09:54:41 02/01/20 22 01/31/2022 influ stanley virus A + B + SARS- CoV-2 (COVI D19) Ag panel , rapid IA, upper respi rator y speci men FLU B negati ve Not Available [facility] [address] [place], [address], 01/31/2022 09:54:41 02/01/20 22 01/31/2022 influ stanley virus A + B + SARS- CoV-2 (COVI D19) Ag panel , rapid IA, upper respi rator y speci men SARS COV + SARS OV 2 negati ve Not Available [facility] [address] [place], [address], 01/31/2022 09:54:41 03/09/19 23 03/08/2022 ribs RT W Pa/CX R [facility] [address] [place] [address] Phone: Fax: Name: OZZY ROMANO Exam Date: 023 : 987 Age 36 Gender : F Access ion: [id number] Physic fede: OLLIE HALEY Facili ty: [facility] Facili ty HSV: Outpat ient Exam: RIBS RT W PA/CXR Chest with right RIBS Histor y: Chest and right rib pain Findin gs: Prior chest film dates from 04/21/09 . There is increa sing mild cardio megaly and there are new bilate ral inters titial lung infilt rates with pulmon castro vascul ar conges tion. There are no defini te effusi ons. There are somewh at low lung volume s. 3 films are submit griselda. No right rib abnorm alitie s are identi fied. Impres italo: Findin gs are most compat ible with CHF with mild pulmon castro edema. No abnorm ality of the right ribs identi fied. Dictat ed By: CHI KOHLI Transc ribed By: CHI KOHLI Transc ribed On: 023 8:22 AM Electr onical ly signed by: CHI KOHLI 023 [facility] Legall y authen ticate d by OVIDIO MIRELES 03-09 08:22: 45 CC'ed Logic: Orderi ng Provid er: JULIO LEVIN CC Provid er: JULIO LEVIN Attend ing Provid er: JULIO LEVIN Referr ing Provid er: JULIO LEVIN Admitt ing Provid er: JULIO dickerson [facility] [address], [place], [address], 03/09/2022 18:22:13 04/16/19 23 04/11/2022 US, echoc ardio gram, trans thora cic, compl ete No observ ation record ed. [facility] [address], [place], [address], 04/18/2022 11:06:56 05/20/19 25 05/19/2024 XR, cervi kayden spine No observ ation record ed. [facility] [address], [place], [address], 05/21/2024 17:27:21 05/20/19 25 05/19/2024 XR, lumbo sacra l spine No observ ation record ed. [facility] [address], [place], [address], 05/21/2024 17:27:40 05/20/19 25 05/19/2024 XR, thora cic spine No observ ation record ed. [facility] [address], [place], [address], 05/21/2024 17:27:55 Result Notes None recorded. Problems Name Problem SNOMED Code Status Onset Date Resolution Date Notes Provider Name and Address Organization Details Recorded Time Anxiety disorder 623061156 Active Eli hassan, [place] - [facility] - [place] & [place] 2 08:40:42 Hyperlipidemi a 05595170 Active Eli hassan, [place] - [facility] - [place] & [place] 2 08:40:42 Arthralgia of the pelvic region and thigh 055397862 Active Eli hassan, [place] - [facility] - [place] & [place] 2 08:40:42 Migraine 93683512 Active Eli hassan, [place] - [facility] - [place] & [place] 2 08:40:42 Tobacco user 116251315 Active Eli hassan, [place] - [facility] - [place] & [place] 2 08:40:42 Hypertensive disorder 13872565 Active Eli hassan, [place] - [facility] - [place] & [place] 2 08:40:42 Overweight 191244467 Active Eli hassan, [place] [facility] [place] 2 08:40:42 Gastroesophag eal reflux disease without esophagitis 531823820 Active 2021 Ollie Marcos MD [address] , [place], [address] , [place] - [facility] - [place] & [place] 2 18:23:43 Acute bronchitis 53707547 Active 2021 Ollie Marcos MD [address], [place], [address] , [facility] & [place] 2 10:35:42 Problem Notes None recorded. Procedures Surgical History None recorded. Imaging Results Imaging Date Name Status LastModified by Organiz ation Details LastModified Time 03/08/2022 ribs RT W Pa/CXR completed [facility] [address], [place], [address], 03/09/2022 18:22:13 04/11/2022 US, echocardiogram, transthoracic, complete completed [address] [facility] [address] [facility], [place], [address], 04/18/2022 11:06:56 05/19/2024 XR, cervical spine completed [facility] [address], [place], [address], 05/21/2024 17:27:21 05/19/2024 XR, lumbosacral spine completed [facility] [address], [place], [address], 05/21/2024 17:27:40 05/19/2024 XR, thoracic spine completed [facility] [address], [place], [address], 05/21/2024 17:27:55 Procedure Notes None recorded. Medical Equipment None Reported. Allergies Allergen ID Allergen Name Allergen Category Reaction Reaction Severity Criticality Documentation Date Start Date Code Code System Note Provider Name and Address Organization Details Recorded Time 66441 tramadol medicatio n Not available Not available Not available 10/27/2021 04332 RxNorm [place] Roy [facility] & [place] 2 08:40:42 16141 morphine medicatio n swelling Not available Not available 10/27/2021 7052 RxNorm [place] Roy [facility] & [place] 2 08:40:42 Medications Name Sig Start Date Stop Date Status Note LastModified by Organization Details LastModified Time cyclobenzap rine 10 mg tablet TAKE 1 TABLET BY MOUTH EVERY 8 HOURS NEEDED active Not Available Not Available No t Available azithromyci n 250 mg tablet TAKE 2 TABLETS (500 MG) BY ORAL ROUTE ONCE DAILY FOR 1 DAY THEN 1 TABLET (250 MG) BY ORAL ROUTE ONCE DAILY FOR 4 DAYS 03/08 completed Not Available Not Available Not Available benzonatate 200 mg capsule TAKE 1 CAPSULE BY MOUTH EVERY 8 HOURS NEEDED, SWALLOW WHOLE DO NOT CHEW active Not Available Not Available No t Available meloxicam 15 mg tablet Take 1 {tablet} by oral route. 03/08 completed Not Available Not Available Not Available ondansetron HCl 4 mg tablet Take 1 tablet every 8 hours by oral route as needed. active Not Available Not Available No t Available prednisone 20 mg tablet TAKE 2 TABLETS BY MOUTH ONCE DAILY WITH FOOD FOR 5 DAYS 03/08 completed Not Available Not Available Not Available sertraline 100 mg tablet TAKE 1 TABLET BY MOUTH EVERY DAY FOR DEPRESSIO N active Not Available Not Available No t Available sumatriptan 50 mg tablet 2017 active Not Available Not Available Not Avai lable Nicotrol 10 mg inhalation cartridge USE 1 CARTRIDGE NEEDED 16 TIMES A DAY active Not Available Not Available No t Available pantoprazol e 20 mg tablet,logan yed release TAKE 1 TABLET BY MOUTH EVERY DAY 2022 active Not Available Not Available Not Avai lable omeprazole 20 mg capsule,del ayed release TAKE 1 CAPSULE BY MOUTH EVERY DAY 30 MINUTES BEFORE BREAKFAST active Not Available Not Available No t Available hydroxyzine HCl 25 mg tablet 1 {tablet_a s_needed} 3 times a day by oral route. 2020 active Not Available Not Available Not Avai lable hydrochloro thiazide 25 mg tablet TAKE 1 TABLET BY MOUTH EVERY DAY NEEDED 2022 active Not Available Not Available Not Avai lable lovastatin 20 mg tablet TAKE 1 TABLET BY MOUTH EVERY DAY WITH THE EVENING MEAL active Not Available Not Available No t Available methylpredn isolone 4 mg tablets in a dose pack FOLLOW PACKAGE DIRECTION S 03/08 completed Not Available Not Available Not Available ondansetron 4 mg disintegrat ing tablet TAKE 1 TABLET BY MOUTH 3 TIMES DAILY NEEDED FOR VOMITING active Not Available Not Available No t Available sertraline 50 mg tablet 03/29 completed Not Available Not Available Not Available Ventolin HFA 90 mcg/actuati on aerosol inhaler INHALE 2 PUFFS BY MOUTH EVERY 6 HOURS NEEDED 2022 active Not Available Not Available Not Avai lable escitalopra m 20 mg tablet TAKE 1 TABLET BY MOUTH EVERY DAY 2021 active Not Available Not Available Not Avai lable buprenorphi ne 8 mg-naloxone [address] 1 AND 1/2 TABLETS UNDER THE TONGUE ONCE DAILY active Not Available Not Available No t Available metoprolol tartrate 25 mg tablet TAKE 1 TABLET BY MOUTH TWICE DAILY WITH FOOD active Not Available Not Available No t Available varenicline tartrate 1 mg tablet TAKE 1 TABLET BY MOUTH TWICE DAILY active Not Available Not Available No t Available varenicline tartrate 0.5 mg (11)-1 mg (42) tablets in a dose pack TAKE 1 STARTER PACK DIRECTED BY MOUTH active Not Available Not Available No t Available buprenorphi ne 8 mg-naloxone 2 mg sublingual film DISSOLVE 1 FILM UNDER THE TONGUE ONCE DAILY active Not Available Not Available No t Available Anoro Ellipta 62.5 mcg-25 mcg/actuati on powder for inhalation INHALE 1 PUFF BY MOUTH EVERY DAY active Not Available Not Available No t Available BinaxNOW COVID-19 Ag Self Test kit TEST DIRECTED TODAY active Not Available Not Available No t Available Vitals Date Recorded Body weight Body temperature Provider N shyam and Address Organization Details Last Updated DateTime 03/08/2022 74969.17 g 96.8 [degF] Magdalena MENDEZ - [facility] 03/08/2022 15:37:27 Date Recorded Body weight Body mass index (BMI) Body height Body temperature Heart rate Systolic blood pressure Diastolic blood pressure Provider Name and Address Organization Details Last Updated DateTime 3 97858.4 7 g 36.6 kg/m2 157.48 cm 96.1 [degF] 75 /min 135 mm[Hg] 83 mm[Hg] Magdalena MENDEZ - [facility] 15:09:42 Date Recorded Body temperature Provider Name a nd Address Organization Details Last Updated DateTime 01/31/2022 98.9 [degF] Binta Mcclure [place] - [facility] - [place] & [place] 01/31/2022 10:30:46 Social History Question Answer Notes LastModified by Organizat ion Details LastModified Time What Is Your Level Of Alcohol Consumption? None Information not available 03/29/2022 Are You Blind Or Do You Have Difficulty Seeing? No Information n ot available 03/29/2022 What Is Your Level Of Caffeine Consumption? Occasional Information not available 03/29/2022 In The 14 Days Before Symptom Onset, Have You Had Close Contact With A Laboratory-confirm ed COVID-19 While That Case Was Ill? No Information n ot available 01/31/2022 In The 14 Days Before Symptom Onset, Have You Had Close Contact With A Person Who Is Under Investigation For COVID-19 While That Person Was Ill? No Information not available 01/31/2022 Have You Been To An Area Known To Be High Risk For COVID-19? No Information not available 01/31/2022 Are You Deaf Or Do You Have Serious Difficulty Hearing? No Information not available 03/29/2022 Have You Processed Blood Or Body Fluids From An Ebola Virus Disease Patient Without Appropriate PPE? No Information not available 01/31/2022 Do You Reside In Or Have You Traveled To An Area Where Ebola Virus Transmission Is Active? No Information not available 01/31/2022 What Is The Fluoride Status Of Your Home? Fluoridated Information not available 03/29/2022 Have You Recently Or Are You Planning To Travel To An Area With Zika Virus? No Information not available 01/31/2022 Sex: Unknown Functional Status Question Answer Note LastModified by Organizat ion Details LastModified Time Do you have difficulty walking or climbing stairs? No Information not available 03/29/2022 Do you have transportation difficulties? No Information not available 03/29/2022 Are you able to walk? YESWOREST Information not available 03/29/2022 Do you have difficulty doing errands alone? No Information not available 03/29/2022 Are you able to care for yourself? Yes Information not available 03/29/2022 Do you have difficulty dressing or bathing? No Information not available 03/29/2022 Mental Status Question Answer Note LastModified by Organization D etails LastModified Time Do you have difficulty concentrating, remembering or making decisions? No Information no t available 03/29/2022 Family History Nothing Reported. Medical History Condition Response Coronary Artery Disease N Gout N None N Kidney Stones N Hyperthyroidism N Depression N COPD N Anxiety Disorder N Obesity N Arthritis N Mental Disorder N Cancer N Stroke N Fibromyalgia N Kidney Disease N MRSA exposure N Tuberculosis N AIDS/HIV N Asthma N Jaundice N Pulmonary Embolism N Chronic Ear Infections N Hypothyroidism N Difficulty Swallowing N Meniere's disease N High Cholesterol N Liver Disease N Anemia N Diabetes N Congestive Heart Failure (CHF) N Diverticulitis N Reflux/GERD N Heart Disease N Hypertension N Osteoporosis N Gynecological HistoryNo gynecological history recorded. Obstetrics History GPAL:G 0 P 0 0 0 0 Immunizations Vaccine Type Date Status Note Provider Nam e and Address Organization Details Recorded Time Hep B, adolescent/high risk infant 3 completed Binta [place] null, [place] [facility] & [place] 01/31/2022 09:50:07 DTP 7 completed Binta [place] [facility] & [place] 01/31/2022 09:50:07 COVID-19, mRNA, LNP-S, PF, 30 mcg/0.3 mL dose 1 completed Binta [place] null[place] [facility] & [place] 01/31/2022 09:50:07 DTP 1 completed Peñuelassharona [place] null, [place] [facility] [place] 01/31/2022 09:50:07 MMR 8 completed Binta [place] null, [place] [facility] & [place] 01/31/2022 09:50:07 COVID-19, mRNA, LNP-S, PF, 30 mcg/0.3 mL dose 1 completed Binta [place] [facility] [place] 01/31/2022 09:50:07 DTP 8 completed Binta [place]cl[place] [facility] [place] 01/31/2022 09:50:07 Hep A, adult 9 completed Peñuelas Mcclure [place] [facility] [place] 01/31/2022 09:50:07 OPV 7 completed Peñuelas Mcclure [place] [facility] [place] 01/31/2022 09:50:07 Hep B, adolescent/high risk 8 completed Peñuelas Mcclure [place] [facility] [place] 01/31/2022 09:50:07 Tdap 5 completed Binta [place]cl[place] [facility] [place] 01/31/2022 09:50:07 Hib, unspecified formulation 0 completed Peñuelas Mcclure [place] [facility] [place] 01/31/2022 09:50:07 OPV 7 completed Binta [place]cl[place] [facility] [place] 01/31/2022 09:50:07 OPV 8 completed Binta Mccl[place] [facility] [place] 01/31/2022 09:50:07 DTP 7 completed Binta Mccl[place] [facility] [place] 01/31/2022 09:50:07 Tdap 9 completed Binta Mccl[place] [facility] [place] 01/31/2022 09:50:07 MMR 8 completed Binta Mccl[place] [facility] [place] 01/31/2022 09:50:07 Hep B, adolescent/high risk 9 completed Peñuelas Mccl[place] [facility] [place] 01/31/2022 09:50:07 MMR 05/07/201 9 completed Peñuelas Mcclure null, [place] - [place] & [place] 01/31/2022 09:50:07 DTP 7 completed Binta hassan, [place] - [place] & [place] 01/31/2022 09:50:07 OPV 1 completed Binta hassan, [place] - [place] & [place] 01/31/2022 09:50:07 Td (adult), 2 Lf tetanus toxoid, preservative free, adsorbed 3 completed Binta hassan, [place] - [place] & [place] 01/31/2022 09:50:07 Influenza, split virus, quadrivalent, PF 7 completed Not Available [facility] 03/29/2022 15:02:40 Past Encounters Encounter ID Performer Location Encounter Start Date Encounter Closed Date Diagnosis/Indication Diagnosis SNOMED-CT Code Diagnosis ICD10 Code Diagnosis Note [id number] [place] [address] 01/31/2022 09:33:02 01/31/2022 10:34:43 Cough 72969525 R05.9 Acute bronchitis 2221195 2 J20.9 [id number] [place] [address] 03/08/2022 15:26:04 03/08/2022 16:17:17 Right sided chest pain 827644486 R07.89 Suspect muscle strain as possible cause of her current pain. Checking rib x-ray. Recommend use of muscle relaxant as needed. [id number] [place] [address] 03/29/2022 15:01:33 03/29/2022 15:50:29 Tobacco user 472370180 Z72.0 Gastroesop hageal reflux disease without esophagitis 739634961 K21.9 Continue Pantoprazo le. Overweight 646129208 E66 .3 Continuing to work on weight loss with improved diet. Health Concerns Section Related Observation LastModified by Organization Detai ls LastModified Time None Recorded Concern Status LastModified by Organization Details LastModified Time None Recorded Advance Directives Directive None Recorded Payers Encounter Date Sequence Insurance Name Policy Number Policy Bowman Covered Member ID Bowman Member ID Guarantor Name 01/31/2022 1 [employer] [facility] (MEDICAID HMO) Sherron N Romano [id number] Sherron N Romano 03/08/2022 1 [employer] [facility] (MEDICAID HMO) Sherron N Romano [id number] Sherron N Romano 03/29/2022 1 [employer] [facility] (MEDICAID HMO) Sherron N Romano [id number] Sherron N Romano Notes Date Note Type Note Provider Name and Address Organization Details Recorded Time 01/31/2022 text/html Started feeling bad about a week ago. Has been having nasal congestion and coughing. Mild sore throat but no ear pain. Denies vomiting or diarrhea. Having chills and feels flushed but no known fevers. Has been taking Tylenol and Motrin. Has had exposure to flu, covid, and RSV recently at work as she works at a group home. Has been using her Anoro and rescue Albuterol Ollie Marcos MD [address], [place], [address], [facility] & [place] 01/31/2022 18:04:35 03/08/2022 text/html Started hurting around her right side about 4 days ago. Says it hurts with movement, with coughing, and with taking deep breaths. Has been taking Tylenol and Motrin without improvement. Has tried a cold spray which helps temporarily. Denies fevers but has had a cough which started prior to the pain. States she had been lifting some heavy things at work around the time the pain started as well. Ollie Marcos MD [address], [place], [address], [facility] & [place] 03/08/2022 21:37:15 03/29/2022 text/html Here for medicin e follow-up today.Has continued on the Anoro daily. Has been drinking water after using it. Says her breathing has been better and coughing less. Continues trying to quit smoking. Is smoking about 1 ppd. Had tried the Nicotrol inhaler but didn't use it consistently.Has her echo scheduled for 04/05/22 to evaluate for CHF seen on recent CXR.Has been trying to eat better and lose weight. Eating less fried foods.Changed from Omeprazole to Pantoprazole at last follow-up appt. The Pantoprazole has worked much better for her. Ollie Marcos MD [address] [facility], [place], [address], [facility] - NT - [place] & [place] 03/31/2022 16:30:12 OBGyn Episode No OBEpisode recorded.
== END 2024-05-19 22:53 | disposition home or self-care (01) ==
PROVIDERS: Emergency Provider Emergency Medicine; PCP Nurse Practitioner Family
DX: M54.50 Low back pain, unspecified (principal); M54.2 Cervicalgia; R51.9 Headache, unspecified; V89.2XXA Person injured in unspecified motor-vehicle accident, traffic, initial encounter
CPT/HCPCS: 72040; 72070; 72100; 99283

== ENCOUNTER 2024-05-22 11:41 | Outpatient (CLI) | payer OTHER, SELFPAY ==
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
== END 2024-05-22 23:59 | disposition home or self-care (01) ==
LOC: RAD 11:42
PROVIDERS: PCP Nurse Practitioner Family; Visit Provider Nurse Practitioner Family
DX: R07.89 Other chest pain (principal)
CPT/HCPCS: 71101

== ENCOUNTER 2024-05-23 15:20 | Outpatient (CLI) | payer OTHER, SELFPAY ==
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
== END 2024-05-23 23:59 | disposition home or self-care (01) ==
LOC: RAD 15:20
PROVIDERS: PCP Nurse Practitioner Family; Visit Provider Nurse Practitioner Family
DX: R52 Pain, unspecified (principal); S13.4XXA Sprain of ligaments of cervical spine, initial encounter
CPT/HCPCS: 73000

== ENCOUNTER → 2024-06-03 08:07 | Outpatient (CLI) | payer OTHER, SELFPAY ==
--- OUTSIDE RECORDS SUMMARY | 2024-06-03 08:09 | XMS_ITS | Data Portability ---
Author Organization [facility] ADMIN Address [address] [place] [address] Assessment Encounter Date Assessment Date Assessment LastModified [...] upper respirator y specimen 2021 022 [email or web address] [facility], [address] [place] [address], [address], [place], [address], 2 10:35:41 Referral None recorded. Procedures None recorded. Surgeries None recorded. Imaging XR, ribs, unilateral , w/ PA chest 2022 023 radha 1 [facility] (Registration ), [address], [place], [address], 3 10:39:05 Medication Orders vareniclin e tartrate 0.5 mg (11)-1 mg (42) tablets in a dose pack 2022 023 [facility] #[id number], [address], [id number], 3 15:50:41 vareniclin e tartrate 1 mg tablet 2022 023 [facility] #[id number], [address] [facility] [address], [place], [id number], 3 15:50:42 cyclobenza stef 10 mg tablet 2022 023 [facility] #, [address] [facility] [address], [place], [id number], 3 16:17:40 Anoro Ellipta 62.5 mcg-25 mcg/actuat ion powder for inhalation 2021 [facility] #[id number], [address] [facility] [address], [place], [id number], 2 10:37:50 albuterol sulfate HFA 90 mcg/actuat ion aerosol inhaler 2021 [facility] #, [address] [facility] [address], [place], [id number], 2 10:35:47 azithromyc in 250 mg tablet 2021 [id number], [address] [facility] [address], [place], [id number], 3 15:33:58 prednisone 20 mg tablet 2021 oudlette 1 [facility], [address] [facility] [address], [place], [id number], 3 15:34:24 benzonatat e 200 mg capsule 2021 [facility], [address] [facility] [address], [place], [id number], 2 10:39:03 Patient TargetsNo targets recorded. Patient [...] negati ve Not Available [facility] [address] , [place], [address], 01/31/2022 09:54:41 02/01/20 22 01/31/2022 influ stanley virus A + B + SARS- CoV-2 (COVI D19) Ag panel , rapid IA, upper respi rator y speci men FLU B negati ve Not Available [facility] [address] [place], [address], 01/31/2022 09:54:41 02/01/20 22 01/31/2022 influ stanley virus A + B + SARS- CoV-2 (COVI D19) Ag panel , rapid IA, upper respi rator y speci men SARS COV + SARS OV 2 negati ve Not Available [facility] [address] [place], [address], 01/31/2022 09:54:41 03/09/19 23 03/08/2022 ribs RT W Pa/CX R [facility] [address] [place] [address] Phone: Fax: Name: OZZY ROMANO Exam Date: 023 : 987 Age 36 Gender : F Access ion: [id number] Physic fede: OLLIE HALEY Facili ty: [facility] Facili ty HSV: Outpat ient Exam: [...] [facility] Legall y authen ticate d by OVIDIO MIRELES 03-09 08:22: 45 CC'ed Logic: Orderi ng Provid er: JULIO LEVIN CC Provid er: JULIO LEVIN Attend ing Provid er: JULIO LEVIN Referr ing Provid er: JULIO LEVIN Admitt ing Provid er: JULIO dickerson [facility] [address], [place], [address], 03/09/2022 18:22:13 04/16/19 23 04/11/2022 US, echoc ardio gram, trans thora cic, compl ete No observ ation record ed. [facility] [address], [place], [address], 04/18/2022 11:06:56 05/20/19 25 05/19/2024 XR, cervi kayden spine No observ ation record ed. [facility] [address], [place], [address], 05/21/2024 17:27:21 05/20/19 25 05/19/2024 XR, lumbo sacra l spine No observ ation record ed. [facility] [address], [place], [address], 05/21/2024 17:27:40 05/20/19 25 05/19/2024 XR, thora cic spine No observ ation record ed. [facility] [address], [place], [address], 05/21/2024 17:27:55 Result Notes None recorded. Problems Name Problem SNOMED Code Status Onset Date Resolution Date Notes Provider Name and Address Organization Details Recorded Time Anxiety disorder 163457520 Active Eli hassan, [place] - [facility] - [place] & [place] 2 08:40:42 Hyperlipidemi a 69262097 Active Eli hassan, [place] - [facility] - [place] & [place] 2 08:40:42 Arthralgia of the pelvic region and thigh 782709865 Active Eli hassan, [place] - [facility] - [place] & [place] 2 08:40:42 Migraine 94879667 Active Eli hassan, SEVEN - [facility] - [place] & [place] 2 08:40:42 Tobacco user 651456699 Active Eli hassan, SEVEN - [facility] - [place] & [place] 2 08:40:42 Hypertensive disorder 82569777 Active Eli hassan, SEVEN - [facility] - [place] & [place] 2 08:40:42 Overweight 735656259 Active Eli hassan, SE[place] - [facility] & [place] 2 08:40:42 Gastroesophag eal reflux disease without esophagitis 342726053 Active 2021 Ollie Marcos MD [address] , [place], [address] , [place] - [facility] - [place] & [place] 2 18:23:43 Acute bronchitis 27296723 Active 2021 Ollie Marcos MD [address], [place], [address] , [facility] & [place] 2 10:35:42 Problem Notes None recorded. Procedures Surgical History None recorded. Imaging Results Imaging Date Name Status LastModified by Organiz ation Details LastModified Time 03/08/2022 ribs RT W Pa/CXR completed [facility] [address], [place], [address], 03/09/2022 18:22:13 04/11/2022 US, echocardiogram, transthoracic, complete completed [address] [facility] [address], [place], [address], 04/18/2022 11:06:56 05/19/2024 XR, cervical spine completed [facility] [address], [place], [address], 05/21/2024 17:27:21 05/19/2024 XR, lumbosacral spine completed [facility] [address], [place], [address], 05/21/2024 17:27:40 05/19/2024 XR, thoracic spine completed [facility] [address], [place], [address], 05/21/2024 17:27:55 Procedure Notes None recorded. Medical Equipment None Reported. Allergies Allergen ID Allergen Name Allergen Category Reaction Reaction Severity Criticality Documentation Date Start Date Code Code System Note Provider Name and Address Organization Details Recorded Time 83088 tramadol medicatio n Not available Not available Not available 10/27/2021 70179 RxNorm SEVEN Roy [facility] & [place] 2 08:40:42 93108 morphine medicatio n swelling Not available Not available 10/27/2021 7052 RxNorm SEVEN Roy [facility] & [place] 2 08:40:42 Medications Name Sig Start Date [...] Address Organization Details Last Updated DateTime 03/08/2022 45013.17 g 96.8 [degF] Magdalena MENDEZ - [facility] 03/08/2022 15:37:27 Date Recorded Body weight Body mass index (BMI) Body height Body temperature Heart rate Systolic blood pressure Diastolic blood pressure Provider Name and Address Organization Details Last Updated DateTime 3 37426.4 7 g 36.6 kg/m2 157.48 cm 96.1 [degF] 75 /min 135 mm[Hg] 83 mm[Hg] Magdalena MENDEZ - [facility] 15:09:42 Date Recorded Body temperature Provider Name a nd Address Organization Details Last Updated DateTime 01/31/2022 98.9 [degF] Binta Mcclure [place] - [facility] - [place] & [place] 01/31/2022 10:30:46 Social History Question Answer Notes [...] N Hyperthyroidism N Depression N COPD N Hypothyroidism N Anemia N MRSA exposure N Difficulty Swallowing N Anxiety Disorder N Meniere's disease N Diabetes N Obesity N Arthritis N Mental Disorder N Tuberculosis N AIDS/HIV N Congestive Heart Failure (CHF) N Cancer N Stroke N Diverticulitis N Asthma N Reflux/GERD N Jaundice N High Cholesterol N Liver Disease N Heart Disease N Pulmonary Embolism N Fibromyalgia N Chronic Ear Infections N Hypertension N Osteoporosis N Kidney Disease N Gynecological HistoryNo gynecological history recorded. Obstetrics History GPAL:G 0 P 0 0 0 0 Immunizations Vaccine Type Date Status Note Provider Nam e and Address Organization Details Recorded Time Hep B, adolescent/high risk infant 3 completed Binta [place] null, [place] - [facility] & [place] 01/31/2022 09:50:07 DTP 7 completed Binta [place] null, [place] [facility] & [place] 01/31/2022 09:50:07 COVID-19, mRNA, LNP-S, PF, 30 mcg/0.3 mL dose 1 completed Binta [place] null, [place] [facility] & [place] 01/31/2022 09:50:07 DTP 1 completed Midlandsharona [place] null, [place] [facility] [place] & [place] 01/31/2022 09:50:07 MMR 8 completed Binta [place] null, [place] [facility] & [place] 01/31/2022 09:50:07 COVID-19, mRNA, LNP-S, PF, 30 mcg/0.3 mL dose 1 completed Binta [place] null, [place] [facility] [place] & [place] 01/31/2022 09:50:07 DTP 8 completed Binta [place]cl[place] [facility] [place] 01/31/2022 09:50:07 Hep A, adult 9 completed Mid[place] Mccl[place] [facility] [place] 01/31/2022 09:50:07 OPV 7 completed Mid[place]cl[place] [facility] [place] 01/31/2022 09:50:07 Hep B, adolescent/high risk 8 completed [place] Mccl[place] [facility] [place] 01/31/2022 09:50:07 Tdap 5 completed Binta [place]cl[place] [facility] [place] 01/31/2022 09:50:07 Hib, unspecified formulation 0 completed [place] Mccl[place] [facility] [place] 01/31/2022 09:50:07 OPV 7 completed Binta Mccl[place] [facility] [place] 01/31/2022 09:50:07 OPV 8 completed Binta Mccl[place] [facility] [place] 01/31/2022 09:50:07 DTP 7 completed Binta Mccl[place] [facility] [place] 01/31/2022 09:50:07 Tdap 9 completed Binta [place]cl[place] [facility] [place] 01/31/2022 09:50:07 MMR 8 completed Binta [place]cl[place] [facility] [place] 01/31/2022 09:50:07 Hep B, adolescent/high risk 9 completed [place] Mccl[place] [facility] [place] 01/31/2022 09:50:07 MMR 05/07/201 9 completed Midland Mcclure null, [place] - [place] & [place] 01/31/2022 09:50:07 DTP 7 completed Binta hassan, [place] - [place] & [place] 01/31/2022 09:50:07 OPV 1 completed Binta hassan, [place] - [place] & [place] 01/31/2022 09:50:07 Td (adult), 2 Lf tetanus toxoid, preservative free, adsorbed 3 completed Binta hassan, [place] - [place] & [place] 01/31/2022 09:50:07 Influenza, split virus, quadrivalent, PF 7 completed Not Available [facility] 03/29/[facility] 15:02:40 Past Encounters Encounter ID Performer Location Encounter Start Date Encounter Closed Date Diagnosis/Indication Diagnosis SNOMED-CT Code Diagnosis ICD10 Code Diagnosis Note [id number] [place] [address] 01/31/2022 09:33:02 01/31/2022 10:34:43 Cough 91463007 R05.9 Acute bronchitis 2384116 2 J20.9 [id number] [place] [address] 03/08/2022 15:26:04 03/08/2022 16:17:17 Right sided chest pain 573155216 R07.89 Suspect muscle strain as possible cause of her current pain. Checking rib x-ray. Recommend use of muscle relaxant as needed. [id number] [place] [address] 03/29/2022 15:01:33 03/29/2022 15:50:29 Tobacco user 992889782 Z72.0 Gastroesop hageal reflux disease without esophagitis 960195045 K21.9 Continue Pantoprazo le. Overweight 910806828 E66 .3 Continuing to work on weight loss with improved diet. Health Concerns Section Related Observation LastModified by Organization Detai ls LastModified Time None Recorded Concern Status LastModified by Organization Details LastModified Time None Recorded Advance Directives Directive None Recorded Payers Encounter Date Sequence Insurance Name Policy Number Policy Bowman Covered Member ID Bowman Member ID Guarantor Name 01/31/2022 1 [employer] [facility] (MEDICAID HMO) Sherron N Romano [id number] Sherron N Romano 03/08/2022 1 [employer] [facility] (MEDICAID HMO) Sherron N Romano [id number] Sherron N Romano 03/29/2022 1 [employer] [facility] (MEDICAID HMO) Sherron N Romano [id number] Sherron N Romano Notes Date Note Type [...] at work as she works at a longterm. Has been using her Anoro and rescue Albuterol Ollie Marcos MD [address], [place], [address], [facility] & [place] 01/31/2022 18:04:35 03/08/2022 text/html Started hurting around [...] well. Ollie Marcos MD [address], [place], [address], [facility] & [place] 03/08/2022 21:37:15 03/29/2022 text/html Here for medicin [...] much better for her. Ollie Marcos MD [address] [facility] [address], [place], [address], [facility] - NT - [place] & [place] 03/31/2022 16:30:12 OBGyn Episode No OBEpisode recorded.
== END ==
LOC: SL 08:08
PROVIDERS: PCP Nurse Practitioner; Visit Provider Nurse Practitioner
DX: R00.2 Palpitations (principal); R53.83 Other fatigue; R06.83 Snoring
CPT/HCPCS: 95806

== ENCOUNTER 2024-06-06 15:00 | Outpatient (RCR) | payer OTHER, SELFPAY ==
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
== END 2024-06-06 23:59 | disposition home or self-care (01) ==
LOC: PT 15:00
PROVIDERS: Visit Provider Nurse Practitioner Family
DX: S13.4XXA Sprain of ligaments of cervical spine, initial encounter (principal); M76.61 Achilles tendinitis, right leg; M22.41 Chondromalacia patellae, right knee
CPT/HCPCS: 97110; 97140; 97163

== ENCOUNTER 2024-06-21 08:07 | Outpatient (CLI) | payer OTHER, SELFPAY ==
[2024-06-21 08:10] LABS: Anti-Centromere B Antibodies ND; Anti-DNA (DS) Ab Qn ND; Anti-Jo-1 ND; Antichromatin Antibodies ND; Antiscleroderma-70 Antibodies ND; Microscopic, Urine URINE MICROSCOPIC (MICROSCOPIC); RNP Antibodies ND; Sjogren's Anti-SS-A ND; Sjogren's Anti-SS-B ND
--- OUTSIDE RECORDS SUMMARY | 2024-06-21 08:10 | XMS_ITS | Data Portability ---
Author Organization [facility] ADMIN Address [address] [place] [address] Assessment Encounter Date Assessment Date Assessment LastModified [...] upper respirator y specimen 2021 022 [email or web address] [place], [address] [place] [address], [address], [place], [address], 2 10:35:41 Referral None recorded. Procedures None recorded. Surgeries None recorded. Imaging XR, ribs, unilateral , w/ PA chest 2022 023 radha 1 [facility] (Registration ), [address], [place], [address], 3 10:39:05 Medication Orders vareniclin e tartrate 0.5 mg (11)-1 mg (42) tablets in a dose pack 2022 023 [facility] #[id number], [address], [id number], 3 15:50:41 vareniclin e tartrate 1 mg tablet 2022 023 [facility] #73162, [address], [place], [id number], 3 15:50:42 cyclobenza stef 10 mg tablet 2022 023 [facility] #, [address], [place], [id number], 3 16:17:40 Anoro Ellipta 62.5 mcg-25 mcg/actuat ion powder for inhalation 2021 [facility] #67725, [address], [place], [id number], 2 10:37:50 albuterol sulfate HFA 90 mcg/actuat ion aerosol inhaler 2021 [facility] #, [address], [place], [id number], 2 10:35:47 azithromyc in 250 mg tablet 2021 [facility], [address], [place], [id number], 3 15:33:58 prednisone 20 mg tablet 2021 oudlette 1 [facility], [address], [place], [id number], 3 15:34:24 benzonatat e 200 mg capsule 2021 [facility] #79192, [address], [place], [id number], 2 10:39:03 Patient TargetsNo targets recorded. Patient [...] negati ve Not Available [facility] [address] , [place], [address], 01/31/2022 09:54:41 02/01/20 22 01/31/2022 influ stanley virus A + B + SARS- CoV-2 (COVI D19) Ag panel , rapid IA, upper respi rator y speci men FLU B negati ve Not Available [facility] [address] [place], [address], 01/31/2022 09:54:41 02/01/20 22 01/31/2022 influ stanley virus A + B + SARS- CoV-2 (COVI D19) Ag panel , rapid IA, upper respi rator y speci men SARS COV + SARS OV 2 negati ve Not Available [facility] [address] [place], [address], 01/31/2022 09:54:41 03/09/19 23 03/08/2022 ribs RT W Pa/CX R [facility] [address] [place] [address] Phone: Fax: Name: OZZY ROMANO Exam Date: 023 : 987 Age 36 Gender : F Access ion: [id number] Physic fede: OLLIE HALEY Facili ty: [facility] Facili ty HSV: Outpat ient Exam: [...] [facility] Legall y authen ticate d by OVIDIO MIRELES 03-09 08:22: 45 CC'ed Logic: Orderi ng Provid er: JULIO LEVIN CC Provid er: JULIO LEVIN Attend ing Provid er: JULIO LEVIN Referr ing Provid er: JULIO LEVIN Admitt ing Provid er: JULIO dickerson [facility] [address], [place], [address], 03/09/2022 18:22:13 04/16/19 23 04/11/2022 US, echoc ardio gram, trans thora cic, compl ete No observ ation record ed. [facility] [address], [place], [address], 04/18/2022 11:06:56 05/20/19 25 05/19/2024 XR, cervi kayden spine No observ ation record ed. [facility] [address], [place], [address], 05/21/2024 17:27:21 05/20/19 25 05/19/2024 XR, lumbo sacra l spine No observ ation record ed. [facility] [address], [place], [address], 05/21/2024 17:27:40 05/20/19 25 05/19/2024 XR, thora cic spine No observ ation record ed. [facility] [address], [place], [address], 05/21/2024 17:27:55 Result Notes None recorded. Problems Name Problem SNOMED Code Status Onset Date Resolution Date Notes Provider Name and Address Organization Details Recorded Time Anxiety disorder 033267809 Active Eli hassan, [place] - [facility] - [place] & [place] 2 08:40:42 Hyperlipidemi a 26106820 Active Eli hassan, [place] - [facility] - [place] [facility] [place] 2 08:40:42 Pain of joint of pelvis and/or upper leg 599982668 Active Eli hassan, [place] - [facility] - [place] [facility] [place] 2 08:40:42 Migraine 93121847 Active Eli hassan, [place] - [facility] - [place] [facility] [place] 2 08:40:42 Tobacco user 838090463 Active Eli hassan, SEVEN - [facility] - [place] [facility] [place] 2 08:40:42 Hypertensive disorder 19655078 Active Eli hassan, SEVEN - [facility] - [place] [facility] [place] 2 08:40:42 Overweight 913492134 Active Eli hassan, SEVEN - [facility] - [place] [facility] [place] 2 08:40:42 Gastroesophag eal reflux disease without esophagitis 915375630 Active 2021 Ollie Marcos MD [address] , [place], [address] , [place] - [facility] [place] [facility] [place] 2 18:23:43 Acute bronchitis 64408956 Active 2021 Ollie Marcos MD [address], [place], [address] , [place] [facility] & [place] 2 10:35:42 Problem Notes None recorded. Procedures Surgical History None recorded. Imaging Results Imaging Date Name Status LastModified by Organiz ation Details LastModified Time 03/08/2022 ribs RT W Pa/CXR completed [facility] [address], [place], [address], 03/09/2022 18:22:13 04/11/2022 US, echocardiogram, transthoracic, complete completed [address] [facility] [address], [place], [address], 04/18/2022 11:06:56 05/19/2024 XR, cervical spine completed [facility] [address], [place], [address], 05/21/2024 17:27:21 05/19/2024 XR, lumbosacral spine completed [facility] [address], [place], [address], 05/21/2024 17:27:40 05/19/2024 XR, thoracic spine completed [facility] [address], [place], [address], 05/21/2024 17:27:55 Procedure Notes None recorded. Medical Equipment None Reported. Allergies Allergen ID Allergen Name Allergen Category Reaction Reaction Severity Criticality Documentation Date Start Date Code Code System Note Provider Name and Address Organization Details Recorded Time 51311 tramadol medicatio n Not available Not available Not available 10/27/2021 52037 RxNorm SEVEN Roy NT [facility] & [place] 2 08:40:42 94297 morphine medicatio n swelling Not available Not available 10/27/2021 7052 RxNorm SEVEN Roy [facility] & [place] 2 08:40:42 Medications Name Sig Start Date [...] Address Organization Details Last Updated DateTime 03/08/2022 56065.17 g 96.8 [degF] Magdalena MENDEZ [facility] 03/08/2022 15:37:27 Date Recorded Body weight Body mass index (BMI) Body height Body temperature Heart rate Systolic blood pressure Diastolic blood pressure Provider Name and Address Organization Details Last Updated DateTime 3 33559.4 7 g 36.6 kg/m2 157.48 cm 96.1 [degF] 75 /min 135 mm[Hg] 83 mm[Hg] Magdalena MENDEZ [facility] 15:09:42 Date Recorded Body temperature Provider Name a nd Address Organization Details Last Updated DateTime 01/31/2022 98.9 [degF] Binta Mcclure [place] - [facility] [place] [facility] [place] 01/31/2022 10:30:46 Social History Question Answer Notes [...] History Condition Response Coronary Artery Disease N None N Gout N Kidney Stones N Hyperthyroidism N Hypothyroidism N Depression N COPD N Anemia N Difficulty Swallowing N MRSA exposure N Anxiety Disorder N Meniere's disease N [...] completed Binta [place] null, [place] - [facility] & [place] 01/31/2022 09:50:07 DTP 7 completed Binta [place] null, [place] [facility] & [place] 01/31/2022 09:50:07 COVID-19, mRNA, LNP-S, PF, 30 mcg/0.3 mL dose 1 completed Binta [place] null, [place] [facility] & [place] 01/31/2022 09:50:07 DTP 1 completed [place] null, [place] [facility] [place] 01/31/2022 09:50:07 MMR 8 completed Binta Morealnds null, [place] [facility] [place] 01/31/2022 09:50:07 COVID-19, mRNA, LNP-S, PF, 30 mcg/0.3 mL dose 1 completed Binta Mcclure null, [place] [facility] [place] 01/31/2022 09:50:07 DTP 8 completed Binta Mcclure [place] [facility] [place] 01/31/2022 09:50:07 Hep A, adult 9 completed [place], [place] [facility] [place] 01/31/2022 09:50:07 OPV 7 completed Binta Mccl[place] [facility] [place] 01/31/2022 09:50:07 Hep B, adolescent/high risk infant 8 completed Binta [place]cl[place] [facility] [place] 01/31/2022 09:50:07 Tdap 5 completed Binta Mcclure [place] [facility] [place] 01/31/2022 09:50:07 Hib, unspecified formulation 0 completed Binta [place]cl[place] [facility] [place] 01/31/2022 09:50:07 OPV 7 completed [place], [place] [facility] [place] 01/31/2022 09:50:07 OPV 8 completed Binta Mccl[place] [facility] [place] 01/31/2022 09:50:07 DTP 7 completed [place], [place] [facility] [place] 01/31/2022 09:50:07 Tdap 9 completed Binta Mcclure [place] [facility] [place] 01/31/2022 09:50:07 MMR 8 completed Binta Mccl[place] [facility] [place] 01/31/2022 09:50:07 Hep B, adolescent/high risk 9 completed Binta Mcclure null[place] [facility] [place] 01/31/2022 09:50:07 MMR 9 completed Binta Mcclure null, [place] - [place] [facility] [place] 01/31/2022 09:50:07 DTP 7 completed Binta hassan, [place] - [place] [facility] [place] 01/31/2022 09:50:07 OPV 1 completed Binta hassan, [place] - [place] [facility] [place] 01/31/2022 09:50:07 Td (adult), 2 Lf tetanus toxoid, preservative free, adsorbed 3 completed Binta hassan, [place] - [place] [facility] [place] 01/31/2022 09:50:07 Influenza, split virus, quadrivalent, PF 7 completed Not Available [facility] 03/29/2022 15:02:40 Past Encounters Encounter ID Performer Location Encounter Start Date Encounter Closed Date Diagnosis/Indication Diagnosis SNOMED-CT Code Diagnosis ICD10 Code Diagnosis Note [id number] [place] [address] 01/31/2022 09:33:02 01/31/2022 10:34:43 Cough 69731667 R05.9 Acute bronchitis 2972049 2 J20.9 [id number] [place] [address] 03/08/2022 15:26:04 03/08/2022 16:17:17 Right sided chest pain 597650551 R07.89 Suspect muscle strain as possible cause of her current pain. Checking rib x-ray. Recommend use of muscle relaxant as needed. [id number] [place] [address] 03/29/2022 15:01:33 03/29/2022 15:50:29 Tobacco user 875141458 Z72.0 Gastroesop hageal reflux disease without esophagitis 916308326 K21.9 Continue Pantoprazo le. Overweight 302943978 E66 .3 Continuing to work on weight loss with improved diet. Health Concerns Section Related Observation LastModified by Organization Detai ls LastModified Time None Recorded Concern Status LastModified by Organization Details LastModified Time None Recorded Advance Directives Directive None Recorded Payers Insurance Date Sequence Insurance Name Policy Number Policy Bowman Covered Member ID Bowman Member ID Guarantor Name 05/28/2022 1 [employer] [facility] (MEDICAID HMO) Sherron Romano [id number] Sherron Romano Notes Date Note Type Note Provider [...] at work as she works at a [employer]. Has been using her Anoro and rescue Albuterol Ollie Marcos MD [address], [place], [address], [place] [facility] & [place] 01/31/2022 18:04:35 03/08/2022 text/html Started hurting around [...] well. Ollie Marcos MD [address], [place], [address], [place] [facility] & [place] 03/08/2022 21:37:15 03/29/2022 text/html Here for medicin [...] much better for her. Ollie Marcos MD [address], [place], [address], [facility] - [place] & [place] 03/31/2022 16:30:12 OBGyn Episode No OBEpisode recorded.
[2024-06-21 08:38] LABS: Basophils % 0.5 % (0.1-2.0); Eosinophils # 0.1 Kmm3 (0.0-0.4); Eosinophils % 1.8 % (0.1-12.0); Hematocrit 42.9 % (37.0-47.0); Immature Granulocytes # 0.02 10^3uL; Immature Granulocytes % 0.3 %; Lymphocytes # 1.9 K/mm3 (0.7-4.5); Lymphocytes % 24.6 % (10-50); Mean Corpuscular Hemoglobin 29.7 pg (27.0-31.2); Mean Platelet Volume 10.7 fl (7.4-10.4); Monocytes # 0.6 K/mm3 (0.1-1.0); Monocytes % 7.5 % (1.7-9.3); Neutrophils # 5.1 K/mm3 (1.8-7.8); Neutrophils % 65.3 % (37.0-80.0); Nucleated Red Blood Cells # 0 10^3/uL; Nucleated Red Blood Cells % 0 %; Platelet Count 270 K/mm3 (142-424); Red Blood Count 5.05 M/mm3 (4.20-5.40); Red Cell Distribution Width 13.6 % (11.5-17.5); Red Cell Distribution Width-SD 42.5 fL; White Blood Count 7.8 K/mm3 (4.8-10.8)
[2024-06-21 09:59] LABS: Appearance,Urine CLEAR (Clear); Bilirubin,Urine Negative (Negative); Blood, Urine Negative (Negative); Color,Urine YELLOW (Yellow); Glucose,Urine (UA) Negative (Negative); Ketones,Urine Negative (Negative); Leukocyte Esterase,Urine 1+ (Negative); Nitrate,Urine Negative (Negative); Protein,Urine Negative (Negative); Urobilinogen,Urine 0.2 EU/dl (0.2)
[2024-06-21 10:13] LABS: Alanine Aminotransferase 23 U/L (12-78); Albumin Level 4.3 g/dl (3.5-5.0); Albumin/Globulin Ratio 1.8 (1.1-1.8); Alkaline Phosphatase 81 U/L (38-126); Anion Gap 5.5 mEq/L (5-15); Aspartate Amino Transferase 29 U/L (14-36); Bilirubin,Total 0.5 mg/dl (0.2-1.3); Blood Urea Nitrogen 10 mg/dl (7-17); Calcium 9.2 mg/dl (8.4-10.2); Carbon Dioxide 30 mmol/L (22.0-30.0); Chloride 104 mmol/L (98-107); Chol/HDL Ratio 7.2 (1-3.5); Cholesterol 215 mg/dl (140-200); Estimated Glomerular Filt Rate 94 ml/min (>60); GFR (African American) 113 ML/MIN (>60); Globulin 2.4 g/dL (1.3-3.2); Glucose 95 mg/dl (74-100); HDL Cholesterol 30 mg/dl (40-60); Potassium 3.5 mmoL/L (3.5-5.1); Sodium 136 mmol/L (136-145); Total Protein,Serum 6.7 g/dl (6.3-8.2); Triglycerides 364 mg/dl (30-150); VLDL Cholesterol 73 mg/dL (0-40)
[2024-06-21 10:15] LABS: Bacteria,Urine 4+ /lpf
[2024-06-21 10:16] LABS: Hemoglobin A1C 5.3 % (4.0-6.0)
[2024-06-21 10:24] LABS: Direct LDL Cholesterol 119.85 mg/dL (100-129)
[2024-06-21 10:29] LABS: Free T4 (Free Thyroxine) 1.12 ng/dl (0.78-2.19)
[2024-06-21 10:30] LABS: 25-OH Vitamin D, Total 13.2 ng/mL (30-100)
[2024-06-21 10:42] LABS: Thyroid Stimulating Hormone 1.49 uIU/mL (0.465-4.68)
[2024-06-22 08:12] LABS: FSH 9.1 mIU/mL (.); LH 5.8 mIU/mL (.); Progesterone 0.4 ng/mL (.); Thyroid Peroxidase Antibodies 12 IU/mL (0-34)
[2024-06-24 14:17] LABS: Antinuclear Antibodies (ANA) Negative (Negative)
[2024-06-25 14:11] LABS: Estrogen 108 pg/mL (.)
== END 2024-06-21 23:59 | disposition home or self-care (01) ==
LOC: LAB 08:08
PROVIDERS: PCP Nurse Practitioner Family; Visit Provider Nurse Practitioner Family
DX: E78.2 Mixed hyperlipidemia (principal); E53.8 Deficiency of other specified B group vitamins; R23.2 Flushing; R53.83 Other fatigue; R41.3 Other amnesia; G47.33 Obstructive sleep apnea (adult) (pediatric); E11.9 Type 2 diabetes mellitus without complications; R45.86 Emotional lability; F32.A Depression, unspecified; F41.9 Anxiety disorder, unspecified; Z13.1 Encounter for screening for diabetes mellitus; Z12.4 Encounter for screening for malignant neoplasm of cervix; I10 Essential (primary) hypertension; Z13.29 Encounter for screening for other suspected endocrine disorder
CPT/HCPCS: 36415; 80053; 80061; 81001; 82306; 82672; 83001; 83002; 83036; 84144; 84439; 84443; 85025; 86376; 87086; 87088; 87186

== ENCOUNTER 2024-07-04 08:00 | Outpatient (RCR) | payer OTHER, SELFPAY ==
--- NOTE | 2024-06-18 09:00 | HMH.RHREAS ---
Rehab Reassessment Rehab OP Re-assessment Start: 06/18/24 08:04 Freq: Status: Active Protocol: Document 06/18/24 08:31 SCOTTY (Rec: 06/18/24 09:00 SCOTTY [id number]) E-signed By Hannah Fields PT Neck Disability Index Neck Disability Index Section 1: Pain Intensity I have no pain at the moment Section 2: Personal Care (washing, I can look after myself dressing, etc.) normally without causing extra pain Section 3: Lifting I can lift heavy weights but it gives extra pain Section 4: Reading I can read as much as I want with moderate pain in my neck Section 5: Headaches I have no headaches at all Section 6: Concentration I can concentrate fully when I want to with slight difficulty Section 7: Work I can only do my usual work, but no more Section 8: Driving I can drive my car as long as I want with moderate pain in my neck Section 9: Sleeping I have no trouble sleeping Section 10: Recreation I am able to engage in all my recreation activities with some pain in NDI Score 8 Rehab Re-assessment Objective Objective Notes Palpation: 1-2/ TTP of R sub occipital muscles, R UT/LS mm, C5-C7 TP bilaterally Cervical AROM: flex 45, ext 45 , RLF 45, LLF 45, Rrot 70, Lrot 75 Scapular strength: 05/18 grossly Assessment Progress Assessment Progressing as Expected Assessment Notes Pt has attended only 3 PT treatment sessions since her initial evaluation although she voices compliance with her HEP. PT treatment has consisted of cervical mobility , cervical stretching, postural re-education, manual therapy and modalities with good tolerance. Pt demonstrated improved subjective report of pain/ headaches, NDI score and cervical ROM this date compared to the initial evaluation. Pt continues to report stiffness of her neck with tenderness to palpation with muscle guarding of the R cervical musculature. Overall, the pt would continue to benefit from skilled PT to further improve tenderness to palpation, scapular strength, posture and functional activity tolerance to improve overall QOL. Patient goals met ST LT/6 Goals Not Met tenderness to palpation, strength Revised Goals n/a Plan Plan Continue POC. Focus on STM, soft tissue extensibility, and scapular strengthening. Frequency of Therapy 2x/week Duration of therapy 2-4 more weeks Time and Billing Re-Eval Time 11 Re-Eval Billing Units 0 Charge for PT reassessment? No Charge for OT reassessment? No PHYSICIAN CERTIFICATION: I certify the specified therapy services for Sherron Jameson are required, authorized, and reviewed every 30 days.
== END 2024-07-04 23:59 | disposition home or self-care (01) ==
LOC: PT 08:00
PROVIDERS: Visit Provider Nurse Practitioner Family
DX: M76.61 Achilles tendinitis, right leg (principal); M22.41 Chondromalacia patellae, right knee
CPT/HCPCS: 97110; 97140

== ENCOUNTER 2024-08-02 13:43 | Outpatient (CLI) | payer OTHER, SELFPAY ==
--- OUTSIDE RECORDS SUMMARY | 2024-08-02 13:45 | XMS_ITS | Data Portability ---
Author Organization [facility] ADMIN Address [address] [place] [id number] Assessment Encounter Date Assessment Date Assessment LastModified [...] 022 [email or web address] [facility], [address] [place] [address], [address], [place], [address], 2 10:35:41 Referral None recorded. Procedures None recorded. Surgeries None recorded. Imaging XR, ribs, unilateral , w/ PA chest 2022 023 radha 1 [facility] (Registration ), [address], [place], [address], 3 10:39:05 Medication Orders vareniclin e tartrate 0.5 mg (11)-1 mg (42) tablets in a dose pack 2022 023 [facility] #[id number], [address], [id number], 3 15:50:41 vareniclin e tartrate 1 mg tablet 2022 023 [facility] #[id number], [address] [facility] [address], [place], [id number], 3 15:50:42 cyclobenza stef 10 mg tablet 2022 023 [facility] #, [address] [facility] [address], [place], [id number], 3 16:17:40 Anoro Ellipta 62.5 mcg-25 mcg/actuat ion powder for inhalation 2021 [facility] #[id number], [address] [facility] [address], [place], [id number], 2 10:37:50 albuterol sulfate HFA 90 mcg/actuat ion aerosol inhaler 2021 [facility] #, [address] [facility] [address], [place], [id number], 2 10:35:47 azithromyc in 250 mg tablet 2021 [facility], [address] [facility] [address], [place], [id number], 3 15:33:58 prednisone 20 mg tablet 2021 [place] 1 [facility], [address] [facility] [address], [place], [id number], 3 15:34:24 benzonatat e 200 mg capsule 2021 [facility], [address] [facility] [address], [place], [id number], 2 10:39:03 Patient TargetsNo targets recorded. Patient [...] negati ve Not Available [facility] [address] , [place], [address], 01/31/2022 09:54:41 02/01/20 22 01/31/2022 influ stanley virus A + B + SARS- CoV-2 (COVI D19) Ag panel , rapid IA, upper respi rator y speci men FLU B negati ve Not Available [facility] [address] [place], [address], 01/31/2022 09:54:41 02/01/20 22 01/31/2022 influ stanley virus A + B + SARS- CoV-2 (COVI D19) Ag panel , rapid IA, upper respi rator y speci men SARS COV + SARS OV 2 negati ve Not Available [facility] [address] [place] [place], [address], 01/31/2022 09:54:41 03/09/19 23 03/08/2022 ribs RT W Pa/CX R [facility] [address] [place] [address] Phone: Fax: Name: OZZY ROMANO Exam Date: 023 : 987 Age 36 Gender : F Access ion: [id number] Physic fede: OLLIE HALEY Facili ty: [facility] Facili ty HSV: Outpat ient Exam: RIBS [...] [facility] Legall y authen ticate d by OVIDIO MIRELES 03-09 08:22: 45 CC'ed Logic: Orderi ng Provid er: JULIO LEVIN CC Provid er: JULIO LEVIN Attend ing Provid er: JULIO LEVIN Referr ing Provid er: JULIO LEVIN Admitt ing Provid er: JULIO dickerson [facility] [address], [place], [address], 03/09/2022 18:22:13 04/16/19 23 04/11/2022 US, echoc ardio gram, trans thora cic, compl ete No observ ation record ed. [facility] [address], [place], [address], 04/18/2022 11:06:56 05/20/19 25 05/19/2024 XR, cervi kayden spine No observ ation record ed. [facility] [address], [place], [address], 05/21/2024 17:27:21 05/20/19 25 05/19/2024 XR, lumbo sacra l spine No observ ation record ed. [facility] [address], [place], [address], 05/21/2024 17:27:40 05/20/19 25 05/19/2024 XR, thora cic spine No observ ation record ed. [facility] [address], [place], [address], 05/21/2024 17:27:55 Result Notes None recorded. Problems Name Problem SNOMED Code Status Onset Date Resolution Date Notes Provider Name and Address Organization Details Recorded Time Anxiety disorder 029761913 Active Eli hassan, [place] [facility] - [place] & [place] 2 08:40:42 Hyperlipidemi a 91613953 Active Eli hassan, [place] - [facility] - [place] & [place] 2 08:40:42 Pain of joint of pelvis and/or upper leg 951652256 Active Eli hassan, [place] - [facility] - [place] & [place] 2 08:40:42 Migraine 44311786 Active Eli hassan, [place] - [facility] - [place] & [place] 2 08:40:42 Tobacco user 074087878 Active Eli hassan, [place] - [facility] - [place] & [place] 2 08:40:42 Hypertensive disorder 36196706 Active Eli hassan, [place] - [facility] - [place] & [place] 2 08:40:42 Overweight 975652247 Active Eli hassan, [place] - [facility] - [place] [facility] [place] 2 08:40:42 Gastroesophag eal reflux disease without esophagitis 836393776 Active 2021 Ollie Marcos MD [address] , [place], [address] , [place] - [facility] [place] & [place] 2 18:23:43 Acute bronchitis 03492879 Active 2021 Ollie Marcos MD [address] [facility], [place], [address] , [facility] & [place] 2 10:35:42 Problem Notes None recorded. Medical Equipment None Reported. Allergies Allergen ID Allergen Name Allergen Category Reaction Reaction Severity Criticality Documentation Date Start Date Code Code System Note Provider Name and Address Organization Details Recorded Time 60014 tramadol medicatio n Not available Not available Not available 10/27/2021 40271 RxNorm Eli hassan, [facility] & [place] 2 08:40:42 47923 morphine medicatio n swelling Not available Not available 10/27/2021 7052 RxNorm Eli hassan, [facility] & [place] 2 08:40:42 Medications Name Sig Start Date [...] Address Organization Details Last Updated DateTime 03/08/2022 79356.17 g 96.8 [degF] Magdalena MENDEZ [facility] & [place] 03/08/2022 15:37:27 Date Recorded Body weight Body mass index (BMI) Body height Body temperature Heart rate Systolic blood pressure Diastolic blood pressure Provider Name and Address Organization Details Last Updated DateTime 3 80087.4 7 g 36.6 kg/m2 157.48 cm 96.1 [degF] 75 /min 135 mm[Hg] 83 mm[Hg] Magdalena MENDEZ [facility] & [place] 3 15:09:42 Date Recorded Body temperature Provider Name a nd Address Organization Details Last Updated DateTime 01/31/2022 98.9 [degF] Binta Mcclure [facility] & [place] 01/31/2022 10:30:46 Social History Question Answer Notes LastModified by Organizat ion Details LastModified Time Are You Blind Or Do You Have [...] Zika Virus? No Information not available 01/31/2022 Do You Have Difficulty Walking Or Climbing Stairs? No Information not available 03/29/2022 Sex: Unknown Functional Status Question Answer Note LastModified by Organizat ion Details LastModified Time What is your level of alcohol consumption? None Information not available 03/29/2022 Do you have [...] Gout N Kidney Stones N Hyperthyroidism N Depression N COPD N Hypothyroidism N Difficulty Swallowing N Anxiety Disorder N Meniere's disease N Obesity N Arthritis N Mental Disorder N Cancer N Stroke N High Cholesterol N Liver Disease N Fibromyalgia N Kidney Disease N Anemia N MRSA exposure N Diabetes N Tuberculosis N AIDS/HIV N Congestive Heart Failure (CHF) N Diverticulitis N Asthma N Reflux/GERD N Jaundice N Heart Disease N Pulmonary Embolism N Chronic Ear Infections N Hypertension N Osteoporosis N Gynecological HistoryNo gynecological history recorded. Obstetrics History GPAL:G 0 P 0 0 0 0 Immunizations Vaccine Type Date Status Note Provider Nam e and Address Organization Details Recorded Time Hep B, adolescent/high risk infant 3 completed [place] - [place] & [place] 01/31/2022 09:50:07 DTP 7 completed [place] - [place] & [place] 01/31/2022 09:50:07 COVID-19, mRNA, LNP-S, PF, 30 mcg/0.3 mL dose 1 completed Shoshone Mcclure null, [place] [facility] [place] 01/31/2022 09:50:07 DTP 1 completed Binta Mcclure [place] [facility] [place] 01/31/2022 09:50:07 MMR 8 completed Shoshone Mcclure [place] [facility] [place] 01/31/2022 09:50:07 COVID-19, mRNA, LNP-S, PF, 30 mcg/0.3 mL dose 1 completed Shoshone Mcclure [place] [facility] [place] 01/31/2022 09:50:07 DTP 8 completed Binta Mcclure [place] [facility] [place] 01/31/2022 09:50:07 Hep A, adult 9 completed Shoshone Mcclure [place] [facility] [place] 01/31/2022 09:50:07 OPV 7 completed Shoshone Mcclure [place] [facility] [place] 01/31/2022 09:50:07 Hep B, adolescent/high risk 8 completed Binta Mcclure [place] [facility] [place] 01/31/2022 09:50:07 Tdap 5 completed Binta Mccl[place] [facility] [place] 01/31/2022 09:50:07 Hib, unspecified formulation 0 completed Binta Mccl[place] [facility] [place] 01/31/2022 09:50:07 OPV 7 completed Shoshone Mcclure [place] [facility] [place] 01/31/2022 09:50:07 OPV 8 completed Shoshone Mcclure [place] [facility] [place] 01/31/2022 09:50:07 DTP 7 completed Shoshone Mcclure [place] [facility] [place] 01/31/2022 09:50:07 Tdap 9 completed Binta Mcclure [place] [facility] [place] 01/31/2022 09:50:07 MMR 8 completed Shoshone Mcclure [place] [facility] [place] 01/31/2022 09:50:07 Hep B, adolescent/high risk 9 completed Shoshone Mcclure [place] [facility] [place] 01/31/2022 09:50:07 MMR 9 completed Binta Mcclure [place] [facility] [place] 01/31/2022 09:50:07 DTP 7 completed Shoshone Mcclure [place] [facility] [place] 01/31/2022 09:50:07 OPV 1 completed Binta Mcclure [place] [facility] [place] 01/31/2022 09:50:07 Td (adult), 2 Lf tetanus toxoid, preservative free, adsorbed 3 completed Binta Mcclure [place] [facility] [place] 01/31/2022 09:50:07 Influenza, split virus, quadrivalent, PF 7 completed Not Available [facility] 03/29/2022 15:02:40 Past Encounters Encounter ID Performer Location Encounter Start Date Encounter Closed Date Diagnosis/Indication Diagnosis SNOMED-CT Code Diagnosis ICD10 Code Diagnosis Note [id number] MD [place] [address] 01/31/2022 09:33:02 01/31/2022 10:34:43 Cough 86183728 R05.9 Acute bronchitis 4940986 2 J20.9 [id number] MD [facility] [place] [address] 03/08/2022 15:26:04 03/08/2022 16:17:17 Right sided chest pain 915725763 R07.89 Suspect muscle strain as possible cause of her current pain. Checking rib x-ray. Recommend use of muscle relaxant as needed. [id number] MD [facility] [address] [place] [address] 03/29/2022 15:01:33 03/29/2022 15:50:29 Tobacco user 340182115 Z72.0 Gastroesop hageal reflux disease without esophagitis 618806269 K21.9 Continue Pantoprazo le. Overweight 708562408 E66 .3 Continuing to work on weight loss with improved diet. Health Concerns Section Related Observation LastModified by Organization Detai ls LastModified Time None Recorded Concern Status LastModified by Organization Details LastModified Time None Recorded Advance Directives Directive None Recorded Payers Insurance Date Sequence Insurance Name Policy Number Policy Bowman Covered Member ID Bowman Member ID Guarantor Name 05/28/2022 1 [facility] (MEDICAID HMO) Sherron Romano [id number] Sherron Romano Notes Date Note Type Note [...] at work as she works at a [employer]. Has been using her Anoro and rescue Albuterol Ollie Marcos MD [address] [facility], [place], [address], [facility] - [facility] - [place] & [place] 01/31/2022 18:04:35 03/08/2022 text/html Started hurting around [...] pain started as well. Ollie Marcos MD [address], [place], [address], [facility] & [place] 03/08/2022 21:37:15 03/29/2022 text/html Here for medicin [...] much better for her. Ollie Marcos MD [address], [place], [address], [facility] & [place] 03/31/2022 16:30:12 OBGyn Episode No OBEpisode recorded.
--- NOTE | 2024-08-02 14:30 | MR_ITS ---
FINAL REPORT TECHNIQUE: Multiplanar and multisequence imaging of the cervical spine was obtained. CLINICAL HISTORY: Posterior neck pain, upper extremity numbness FINDINGS: Alignment is normal. Vertebral body height is preserved. Signal intensity within the substance of the spinal cord is normal. No acute bone marrow edema. No acute paraspinal abnormality. C2/3: There is no focal disc herniation, central stenosis or neural foraminal narrowing. C3/4: An annular disc bulge is present with degenerative endplate changes and facet osteoarthropathy. C4/5: An annular disc bulge is present with degenerative endplate changes and facet osteoarthropathy. C5/6: An annular disc bulge is present with degenerative endplate changes and facet osteoarthropathy with a small superimposed central disc protrusion. Mild central stenosis and mild left neuroforaminal narrowing. C6/7: An annular disc bulge is present with degenerative endplate changes and facet osteoarthropathy. Mild central stenosis and moderate bilateral neuroforaminal narrowing. C7/T1: There is no focal disc herniation, central stenosis or neural foraminal narrowing. IMPRESSION: Multilevel degenerative disc disease. Reviewed, Interpreted and Dictated by Brianna Garcia MD Transcribed by Laure Clayton Authenticated and [facility]
== END 2024-08-02 23:59 | disposition home or self-care (01) ==
LOC: RAD 13:43
PROVIDERS: PCP Nurse Practitioner Family; Visit Provider Nurse Practitioner Family
DX: M50.31 Other cervical disc degeneration, high cervical region (principal); M50.321 Other cervical disc degeneration at C4-C5 level; M50.322 Other cervical disc degeneration at C5-C6 level; M50.323 Other cervical disc degeneration at C6-C7 level; V89.2XXA Person injured in unspecified motor-vehicle accident, traffic, initial encounter
CPT/HCPCS: 72141

== ENCOUNTER → 2024-08-30 14:06 | Outpatient (RCR) | payer OTHER, SELFPAY | LOC: OT 14:06 | PROVIDERS: Visit Provider Physician Assistant | DX: M22.41 Chondromalacia patellae, right knee (principal); M76.61 Achilles tendinitis, right leg | CPT/HCPCS: 97760 ==

== ENCOUNTER 2024-09-19 14:04 | Outpatient (RCR) | payer OTHER, SELFPAY | END 2024-09-19 23:59 | disposition home or self-care (01) | LOC: PT 14:04 | PROVIDERS: Visit Provider Physician Assistant | DX: M25.561 Pain in right knee (principal) | CPT/HCPCS: 97760 ==